=== PATIENT | female | born 1985 | race Caucasian/White ===

== ENCOUNTER 2017-08-03 06:01 | Inpatient (IN) ==
[2017-08-03] MEDS ORDERED: LIDOCAINE 1% (10mg/ml) 2mL INJ PF SDV ID PRN (06:11)
[2017-08-03] MEDS ORDERED: D5LR 1,000 ML IV PRN (06:11)
[2017-08-03] MEDS ORDERED: OXYTOCIN DRIP 30 UNIT/500 ML ML IV PRN (06:11)
[2017-08-03] MEDS ORDERED: CALCIUM CARBONATE Chewable 500mg TABLET PO PRN ×2 (06:11→14:52)
[2017-08-03] MEDS ORDERED: METHYLERGONOVINE 0.2 MG/ML INJECTION IM PRN (06:11)
[2017-08-03] MEDS ORDERED: ACETAMINOPHEN 500 MG TABLET PO PRN ×2 (06:11→14:52)
[2017-08-03] MEDS ORDERED: CARBOPROST 250 MCG/ML INJECTION IM PRN (06:11)
[2017-08-03] MEDS ORDERED: MAG-AL + SIM ORAL LIQUID 30ml PO PRN ×2 (06:11→14:52)
--- OUTSIDE RECORDS SUMMARY | 2017-08-03 06:14 | External Medical Summary | Continuity of Care Document ---
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) - (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) w/o abn findings Suprvsn of w grand - multiparity, second trimester Encounter for suprvsn of normal - , second trimester 23 weeks gestation of - Hypokalemia - 19 weeks gestation of - Encounter for suprvsn of normal - , second trimester Irregular Menses Suprvsn of w grand - multiparity, first trimester Encounter for suprvsn of normal - , first trimester 13 weeks gestation of - Suprvsn of w grand - multiparity, first trimester Encntr screen for infections w sexl - mode of transmiss Encounter for screening for oth - infec/parastc diseases Encounter for screening of - mother 10 weeks gestation of - Encounter for suprvsn of normal - , first trimester Suprvsn of w grand - multiparity, second trimester Encounter for suprvsn of normal - , second trimester 19 weeks gestation of - Pap Smear Screening, Cervix - Suprvsn of w grand - multiparity, second trimester Encounter for suprvsn of normal - , second trimester 17 weeks gestation of - Spotting complicating , - second trimester Encounter for suprvsn of normal - , second trimester 18 weeks gestation of - Spotting complicating , - second trimester Encounter for suprvsn of normal - , second trimester 18 weeks gestation of - Encounter for suprvsn of normal - , second trimester Inappropriate Change In Quantitative - Active HCG In Early Urinary Frequency - Active Procedures Procedure Date OB Visit No Charge Results Test Name Date and Time Measure Units Reference Range Abnormal Flag Comments Unknown Advance Directives Directive Yes / No Effective Date File Name Unknown Encounters Encounter Practice Location Reason(s) Diagnoses Date Provider Care Team Description For Visit Members Richard Kiran of Catherine Referring In Womens w grand 1-201 Brianne. Provider: Kevin HAYES multiparity, 7 Brianne PO Box [facility] Catherine L, 152, [place] [address] Ja for suprvsn of Harpal Jalloh, normal , 120, Center [id number], second Harpal Biswas 120, [place] [email or web address] weeks True NÚÑEZ, tel: gestation of [phone] [place], [id number] , [place]. [id number]. tel: tel: [phone] Richard Biswas [id number] [facility] Referring In Womens weeks gestation 4-201 Brianne. Provider: Kevin HAYES, of Brianne [facility] Catherine L, 152, r for suprvsn of [address], normal , Harpal Jalloh, second trimester 120, Center [id number], True, [facility] 120, [place] True NÚÑEZ, tel:[phone] [place], , [place]. [id number]. tel: tel: [phone] Richard Kiran of Catherine Referring In Womens Ultrasound w grand 4-201 Brianne. Provider: Health ABIGAIL, multiparity, 7 700 Brianne PO Box second Medical Catherine L, 1522, trimesterEncounte Center [facility], r for suprvsn of Harpal Jalloh, normal , 120, Center [id number], second [place], [facility] 120, [place] [email or web address] weeks True NÚÑEZ, tel: gestation of [phone] [place], , [place]. [id number]. tel: tel: [phone] Richard Biswas Spotting Catherine Referring In Womens complicating 9-201 Brianne. Provider: Health ABIGAIL, , second 7 700 Brianne PO Box [facility] Catherine L, 1522, r for suprjamesn of [place] [address] [place], normal , Harpal Jalloh, second 120, Center [id number], [email or web address] weeks True [facility] 120, [place] gestation of True NÚÑEZ, tel:+ [phone] [place], , [place]. [id number]. tel: tel: [phone] Richard Cummins Aman Referring In Womens complicating 8-201 Kuldeep. 700 Provider: Health ABIGAIL, , second 7 Medical Brianne PO Box [facility] [place] Catherine L, 1522, r for suprvsn of Harpal Jalloh, normal , 120, Medical [place], second [place], [place] [id number], [id number] weeks [place], [facility] 120, [place] gestation of [id number] True, tel: , [place]. [place] tel:[phone]. [id number] tel:[phone] Richard Kiran of Raji-1 Catherine Referring In Womens w grand 0-201 Brianne. Provider: Health ABIGAIL, multiparity, 7 700 Brianne PO Box second Medical Catherine L, 1522, trimesterEncounte Center 700 [place], bubba for suprvsn of Harpal Jalloh, normal , 120, Center [id number], second Biswas [facility] 120, [place] weeks True NÚÑEZ, tel:+[phone] gestation of [phone] [place], , [place]. [id number]. tel: tel:[phone] Associates True Encounter for Feb-0 Catherine Referring In Womens suprvsn of normal 5-201 Brianne. Provider: Kevin HAYES, , second 7 700 Brianne PO Box trimester Medical Catherine L, 1522, Center 700 [place], Harpal Jalloh, 120, Center [id number], Biswas [facility] 120, [place] True NÚÑEZ, tel:[phone] [place], , [place]. [id number]. tel: tel:[phone] Associates True Suprvsn of Catherine Referring In Womens w grand 2-201 Brianne. Provider: Kevin HAYES, multiparity, 7 700 Brianne PO Box first Medical Catherine L, 1522, trimesterEncounte Center 700 [place], r for suprvsn of Harpal Jalloh, normal , 120, Center [id number], first [email or web address] [place], Harpal 120, [place] weeks gestation True NÚÑEZ, tel:+ of [phone] [place], , [place]. [id number]. tel: tel:[phone] Associates True Suprvsn of December- Catherine Referring In Womens w grand 3-201 Brianne. Provider: Kevin HAYES, multiparity, 7 700 Brianne PO Box first Medical Catherine L, 1522, trimesterEncntr Center 700 [place], screen for Harpal Jalloh, infections w sexl 120, Center [id number], mode of [place], [facility] 120, [place] transmissEncounte True NÚÑEZ, tel:+ r for screening [phone] [place], for oth , [place]. [id number]. infec/parastc tel: tel:+[phone] diseasesEncounter [phone] for screening of [id number] weeks gestation of pregnancyEncounte r for suprvsn of normal , first trimester Associates True Irregular Menses Apr-2 Levin Referring In Womens [facility]. Provider: Kevin HAYES, 7 700 Brianne PO Box Medical Catherine L, 1522, Center [address] Dr Ja, [facility] [place], 120, Center [id number], True, [facility] 120, [place] True NÚÑEZ, tel:[phone] [place], , [place]. [id number]. 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 Provider: Kevin HAYES, (routine) w/o abn 6 700 Brianne PO Box findingsPap Smear Medical Catherine L, 1522, Screening, Cervix Center [address] Dr Ja, [facility], 120, Center [id number], True, [facility] 120, [place] True NÚÑEZ, tel:[phone] [place], , [place]. [id number]. 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 Provider: Kevin HAYES, (routine) w/o abn 5 700 Brianne PO Box findings Medical Catherine L, 1522, Center [address] Dr Ja, [facility] [place], 120, Center [id number], True, [facility] 120, [place] True NÚÑEZ, tel:[phone] [place], , [place]. [id number]. tel: tel:[phone] Richard Biswas May- Ollie Referring In Womens - [facility]. Provider: Kevin HAYES, 5 700 Brianne PO Box Medical Catherine L, 1522, Center [address] Dr Ja, [facility] [place], 120, Center [id number], [facility], [place], [place], tel: [phone] [place], , [place]. [id number]. tel: tel: [phone] Richard Biswas Vincent Referring In Womens 8-201 Varsha. Provider: [facility], 1 700 [facility] 1522, [facility], [place]. Dr Ja, [facility], 120, [id number], [place], [facility], tel: [phone] , [place]. tel: [phone] Family History Family Member Diagnosis Age At Onset Brother Renal disease Sister Hypertension Father Hypertension Paternal grandfather Diabetes mellitus Maternal Grandmother Unknown Cancer Brother Stroke Brother Hypertension Mother Hypertension Immunizations Vaccine Date Status Comments Unknown Payers Payer name Insurance type Covered alliance party ID Authorization(s) [facility] [id number] Social History Type Description Quantity Date Captured Alcohol Use Details No Caffeine Use Details Unknown Tobacco Use Status Unknown Smoking Status Never smoker Vital Signs Date / Height Weight BMI Pulse Blood Temperature Respiratory Body Head BMI Time: Rate Pressure Rate Surface Circumference percentile Area 7 5 8:33 kg/m AM eter (2) 154.50 28.7 95/55 2017 lbs 2 mm[Hg] 8:48 kg/m AM eter (2) Chief Complaint And Reason For Visit Unknown Chief Complaint And Reason For Visit Reason For Referral Reason For Referral Unknown Plan Of Care Date Type Action Status Goal Lifestyle education regarding completed diet Appointment Florencia Anne BOOKED Future Order: Radiology Order Complete OB Ultrasound > 14 Ordered Weeks ([id number]) Future Order: Lab Order Pap Smear With HPV Reflex If Ordered ASCUS ([id number]) Future Order: Lab Order Pap Smear With HPV Reflex If Ordered ASCUS (WPMPap1) Date Type Problem Goal Intervention Status Start Date Unknown. History Of Present Illness Encounter Date Complaint History Of Present Illness This patient has no known history of present illness Functional Status Encounter Date Functional Assessment Cognitive Assessment Unknown Medications Administered Medication Instructions Dosage Effective Dates (start - stop) Status Comments Drug Treatment Unknown Instructions Date Instruction Additional Information [facility] docs new ob handbook Giving encouragement to exercise Related to Body mass index 27.0- 27.9 Lifestyle education regarding diet Related to Body mass index 27.0-27.9
--- OUTSIDE RECORDS SUMMARY | 2017-08-03 06:14 | External Medical Summary | Continuity of Care Document ---
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) - (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) w/o abn findings Hypokalemia - Encounter for suprvsn of normal - , second trimester 19 weeks gestation of - Irregular Menses Suprvsn of w grand - multiparity, first trimester Encounter for suprvsn of normal - , first trimester 13 weeks gestation of - Suprvsn of w grand - multiparity, first trimester Encntr screen for infections w sexl - mode of transmiss Encounter for screening for oth - infec/parastc diseases Encounter for suprvsn of normal - , first trimester Encounter for screening of - mother 10 weeks gestation of - Suprvsn of w grand - multiparity, second trimester Encounter for suprvsn of normal - , second trimester 19 weeks gestation of - Suprvsn of w [...] second trimester 18 weeks gestation of - Pap Smear Screening, Cervix - Encounter for suprvsn of normal - , second trimester Inappropriate Change In Quantitative - Active HCG In Early Urinary Frequency - Active Procedures Procedure Date OB Visit No Charge Assay, blood potassium Venpnctr fngr/heel/ear stick routne Results Test Name Date and Time Measure Units Reference Range Abnormal Flag Comments Panel Description: Potassium [Moles/volume] in Serum or Plasma POTASSIUM 12:08:00 3.6 mmol/L 3.5-5.3 N Test performed at [facility] [id number] [place] [address]Zlaqzaxt: SHEYLA OQUENDO DO,MPH Advance Directives Directive Yes / No Effective Date File Name Unknown Encounters Encounter Practice Location Reason(s) Diagnoses Date Provider Care Team Description For Visit Members Richard Biswas HypokalemiaEncoun Catherine Referring In Women ter for suprvsn 4-201 Brianne. Provider: Health PA, of normal 7 700 Brianne PO Box , second Medical Catherine L, 1522, [email or web address] weeks Center 700 [place], gestation of Harpal Jalloh, 120, Center [id number], True [facility] 120, [place] True NÚÑEZ, tel:[phone] [place], [address] , [place]. [id number]. tel: tel:[phone] Richard Biswas Suprvsn of Raji-2 Catherine Referring In Womens Ultrasound w grand 4-201 Brianne. Provider: Health ABIGAIL, multiparity, 7 700 Brianne PO Box [facility] Medical Catherine L, 1522, [facility] [employer], r for suprvsn of Harpal Jalloh, normal , 120, Center [id number], second True, Harpal 120, [place] [email or web address] weeks True NÚÑEZ, tel:+ gestation of [phone] [place], , [place]. [id number]. tel: tel:[phone] Associates True Spotting Feb-1 Catherine Referring In Womens complicating 9-201 Brianne. Provider: Health PA, , second 7 700 Brianne PO Box [facility] Medical Catherine L, 1522, r for smith of Center [facility] [employer], normal , Harpal Jalloh, second 120, Center [id number], [email or web address] weeks Biswas, [facility] 120, [place] gestation of True NÚÑEZ, tel: [phone] [place], , [place]. [id number]. tel: tel:[phone] Richard Biswas Spotting Feb-1 Aman Referring In Womens complicating 8-201 Kuldeep. 700 Provider: Kevin HAYES, , second 7 Medical Brianne PO Box [facility] L, 1522, r for suprjamesn of Harpal Jalloh, normal , 120, Medical [place], second True, Center [id number], [id number] weeks [place], Harpal 120, [place] gestation of [id number] True, tel: , [place]. [place], tel:[phone]. [id number] tel:[phone] Richard Biswas Suprjamesn of Feb-1 Catherine Referring In Womens w grand 0-201 Brianne. Provider: Health ABIGAIL, multiparity, 7 700 Brianne PO Box second Medical Catherine L, 1522, trimesterEncst. [facility] Center [address] [place], [place] [address]ta, r for suprvsn of Harpal Jalloh, normal , 120, Center [id number], second [place], Harpal 120, [place] [id number] weeks True NÚÑEZ tel:+ gestation of [phone] [place], , [place]. [id number]. tel: tel:[phone] Associates True Encounter for Catherine Referring In Womens suprvsn of normal 5-201 Brianne. Provider: Health PA, , second 7 700 Brianne PO Box trimester Medical Catherine L, 1522, Center [facility] [employer], Harpal Jalloh [place], 120, Center [id number], [place], [facility] 120, [place] True NÚÑEZ, tel:[phone] [place], , [place]. [id number]. tel: tel:[phone] Associates True Suprvsn of Catherine Referring In Womens w grand 2-201 Brianne. Provider: Kevin HAYES, multiparity, 7 700 Brianne PO Box first Medical Catherine L, 1522, trimesterEncounte Center [facility] [employer], r for suprvsn of Harpal Jalloh, normal , 120, Center [id number], first [id number] [place], [facility] 120, [place] weeks gestation True NÚÑEZ, tel:+ of [phone] [place], , [place]. [id number]. tel: tel:[phone] Richard Biswas Suprvsn of Catherine Referring In Womens w grand 3-201 Brianne. Provider: Kevin HAYES, multiparity, 7 700 Brianne PO Box first Medical Catherine L, 1522, trimesterEncntr Center [address] [place] [address], screen for Harpal Jalloh, infections w sexl 120, Center [id number], mode of [place], [facility] 120, [place] transmissEncounte True NÚÑEZ, tel:[phone] r for screening [phone] [place], for oth , [place]. [id number]. infec/parastc tel: tel:+[phone] diseasesEncounter [phone] for suprvsn of normal , first trimesterEncounte r for screening of [email or web address] weeks gestation of Associates True Irregular Menses Apr-2 Levin Referring In Womens Perla. Provider: Kevin HAYES, 7 700 Brianne PO Box Medical Catherine L, 1522, Center [address] Dr Ja, [facility] [place], 120, Center [id number], True, [facility] 120, [place] True NÚÑEZ, tel:[phone] [place], , [place]. [id number]. 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 Provider: Kevin HAYES, (routine) w/o abn 6 700 Brianne PO Box findingsPap Smear Medical Catherine L, 1522, Screening, Cervix Center [address] Dr Ja, [facility] [place], 120, Center [id number], True, [facility] 120, [place] True NÚÑEZ, tel:[phone] [place], , [place]. [id number]. 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 Provider: Kevin HAYES, (routine) w/o abn 5 700 Brianne PO Box findings Medical Catherine L, 1522, Center [address], [facility] [place], 120, Center [id number], True [facility] 120, [place] True NÚÑEZ, tel:[phone] [place], , [place]. [id number]. tel: tel:[phone] Richard Biswas December- Ollie Referring In Womens Perla. Provider: Kevin HAYES, 5 700 Brianne PO Box Medical Catherine L, 1522, Center [address], [facility] [place], 120, Center [id number], True, [facility] 120, [place] True NÚÑEZ, tel:[phone] [place], , [place]. [id number]. tel: tel:[phone] Richard Biswas Nov-2 Vincent Referring In Womens Varsha. Provider: Health ABIGAIL, 1 700 Eleni PO Box Medical [place] 1522, [place], [place]. Dr Ja, [facility], 120, [id number], [place], [place], tel:[phone] , [place]. tel: [phone] Family History Family Member Diagnosis Age At Onset Brother Renal disease Sister Hypertension Father Hypertension Paternal grandfather Diabetes mellitus Maternal Grandmother Unknown Cancer Brother Stroke Brother Hypertension Mother Hypertension Immunizations Vaccine Date Status Comments Unknown Payers Payer name Insurance type Covered constitution party ID Authorization(s) [facility] [id number] Social History Type Description Quantity Date Captured Alcohol Use Details No Caffeine Use Details Unknown Tobacco Use Status Unknown Smoking Status Never smoker Vital Signs Date / Height Weight BMI Pulse Blood Temperature Respiratory Body Head BMI Time: Rate Pressure Rate Surface Circumference percentile Area Unknown Chief Complaint And Reason For Visit Unknown Chief Complaint And Reason For Visit Reason For Referral Reason For Referral Unknown Plan Of Care Date Type Action Status Goal Lifestyle education regarding completed diet Appointment Florencia Anne BOOKED Future Order: Radiology Order Complete OB Ultrasound > 14 Ordered Weeks ([id number]) Future Order: Lab Order Pap Smear With [...]
--- OUTSIDE RECORDS SUMMARY | 2017-08-03 06:14 | External Medical Summary | Continuity of Care Document ---
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) - (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) w/o abn findings 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) - (routine) w/o abn findings Encounter for suprvsn of normal - , second trimester Hypokalemia - 19 weeks gestation of - Encounter for suprvsn of normal - , second trimester Irregular Menses Suprvsn of w grand - multiparity, first trimester Encounter for suprvsn of normal - , first trimester 13 weeks gestation of - Suprvsn of w grand - multiparity, first trimester Encounter for suprvsn of normal - , first trimester Encntr screen for infections w [...] second trimester 18 weeks gestation of - Inappropriate Change In Quantitative - Active HCG In Early Urinary Frequency - Active Procedures Procedure Date No Charge Office Visit Results Test Name Date and Time Measure Units Reference Range Abnormal Flag Comments Unknown Advance Directives Directive Yes / No Effective Date File Name Unknown Encounters Encounter Practice Location Reason(s) Diagnoses Date Provider Care Team Description For Visit Members Richard Biswas [id number] Catherine Referring In Womens weeks gestation 4-201 Brianne. Provider: Kevin HAYES, of 7 700 Brianne [address] [employer], 1522, r for suprvsn of Center [facility] [place], normal , Harpal Jalloh, second trimester 120, Center [id number], True [facility] 120, [place] True NÚÑEZ, tel:[phone] [place] [address] , [place]. [id number]. tel: tel:+ [phone] Associates True Suprvsn of [facility] Referring In Womens Ultrasound w grand 4-201 Brianne. Provider: Kevin HAYES multiparity, 7 700 Brianne PO Box [facility] Medical Catherine L, 1522, trimesterEncounte Center 700 [place], for suprvsn of Harpal Jalloh, normal , 120, Center [id number], [facility] Harpal Biswas 120, [place] [id number] weeks True NÚÑEZ, tel:[phone] gestation of [id number] [place] [address] , [place]. [id number]. tel: tel:[phone] Richard Biswas Spotting Feb-1 Catherine Referring In Womens complicating 9-201 Brianne. Provider: Health ABIGAIL, , second 7 700 Brianne PO Box trimesterEncounte Medical Catherine L, 1522, r for suprvsn of Center [facility] [place], normal , Dr [facility] [place] NÚÑEZ, second 120, Center [id number], [id number] weeks [facility], [place] gestation of True NÚÑEZ, tel:+ [phone] [place], , [place]. [id number]. tel: tel:[phone] Richard Biswas Spotting Feb-1 Aman Referring In Womens complicating 8-201 Kuldeep. 700 Provider: Kevin HAYES, , second 7 Medical Brianne PO Box trimesterEncounte [facility] [place] L, 1522, r for suprvsn of Harpal Jalloh, normal , 120, Medical [place], second [place], [place] [id number], [id number] weeks [facility] 120, [place] gestation of [id number] Biswas, tel: , [place]. [place] tel:[phone] tel:[phone] Richard Biswas Suprvsn of Feb-1 Catherine Referring In Womens w grand 0-201 Brianne. Provider: Kevin HAYES, multiparity, 7 700 Brianne PO Box second Medical Catherine L, 1522, trimesterEncounte Center [address] [place] [address], r for suprvsn of Dr [facility] [place] NÚÑEZ, normal , 120, Center [id number], second [facility] 120, [place] [email or web address] weeks True NÚÑEZ, tel:+ gestation of [id number] [place] , [place]. [id number]. tel: tel:[phone] Richard Biswas Encounter for Raji-0 Catherine Referring In Womens suprvsn of normal 5-201 Brianne. Provider: Kevin HAYES, , second 7 700 Brianne PO Box trimester Medical Catherine L, 1522, Center [address] [facility], 120, Center [id number], [facility] 120, [place] True NÚÑEZ, tel:[phone] [place], , [place]. [id number]. tel: tel:[phone] Associates True [place] of Catherine Referring In Womens w grand 2-201 Brianne. Provider: Kevin HAYES, multiparity, 7 700 Brianne PO Box first Medical Catherine L, 1522, trimesterEncounte Center [facility], r for suprvsn of Harpal Jalloh, normal , 120, Center [id number], first [email or web address] [facility] 120, [place] weeks gestation True NÚÑEZ, tel:+[phone] [place], , [place]. [id number]. tel: tel:[phone] Associates True Kiran of Catherine Referring In Womens w grand 3-201 Brianne. Provider: Kevin HAYES, multiparity, 7 700 Brianne PO Box first Medical Catherine L, 1522, trimesterEncounte Center [facility] [place], bubba for suprvsn of Harpal Jalloh, normal , 120, Center [id number], first [facility] 120, [place] trimesterEncntr True NÚÑEZ, tel:[phone] screen for [phone] [place], infections w sexl , [place]. [id number]. mode of tel: tel:+[phone] transmissEncounte [phone] r for screening for oth infec/parastc diseasesEncounter for screening of [id number] weeks gestation of Associates True Irregular Menses Nov- Levin Referring In Womens 5-201 Perla. Provider: Kevin HAYES, 7 700 Brianne PO Box Medical Catherine L, 1522, Center 700 Dr Ja [facility] [place], 120, Center [id number], True [facility] 120, [place] True NÚÑEZ, tel:[phone] [place], , [place]. [id number]. tel: tel:+ [phone] Richard Biswas Pap Smear Alvaro-0 Ollie Referring In Womens Screening, Perla. 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 [id number]. 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 Provider: Kevin HAYES, (routine) w/o abn 5 700 Brianne PO Box findings Medical Catherine L, 1522, Center 700 Dr Ja, [facility], 120, Center [id number], True, [facility] 120, True NÚÑEZ, tel: [phone] [place], , [place]. [id number]. tel: tel: [phone] Richard Biswas December- Ollie Referring In Womens Perla. Provider: Kevin HAYES, 5 700 Brianne PO Box Medical Catherine , 1522, Center 700 Dr Ja, [facility] [place], 120, Center [id number], True, [facility] 120, [place] True NÚÑEZ, tel: [phone] [place], , [place]. [id number]. tel: tel:[phone] Richard Biswas Jun- Vincent Referring In Womens Varsha. Provider: Kevin HAYES, 1 700 Eleni PO Box Medical [facility] 1522, Center B, DESud[address], [facility] [place], 120, [id number] [place], [place], tel:[phone] , [place]. tel: [phone] Family History Family Member Diagnosis Age At Onset Brother Renal disease Sister Hypertension Father Hypertension Paternal grandfather Diabetes mellitus Maternal Grandmother Unknown Cancer Brother Stroke Brother Hypertension Mother Hypertension Immunizations Vaccine Date Status Comments Unknown Payers Payer name Insurance type Covered democrat ID Authorization(s) A[place] BL [id number] Social History Type Description Quantity Date Captured Alcohol Use Details No Caffeine Use Details Unknown Tobacco Use Status Unknown Smoking Status Never smoker Vital Signs Date / Height Weight BMI Pulse Blood Temperature Respiratory Body Head BMI Time: Rate Pressure Rate Surface Circumference percentile Area 27.1 115/ 2 mm[Hg] 2:38 kg/m PM eter (2) Chief Complaint And Reason For Visit Unknown Chief Complaint And Reason For Visit Reason For Referral Reason For Referral Unknown Plan Of Care Date Type Action Status Goal Lifestyle education regarding completed diet Appointment Florencia Anne BOOKED Future Order: Radiology Order Complete OB Ultrasound > 14 Ordered Weeks ([id number]) Future Order: Lab Order Pap Smear With [...]
--- OUTSIDE RECORDS SUMMARY | 2017-08-03 06:14 | External Medical Summary | Continuity of Care Document ---
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) - (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) w/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) - (routine) w/o abn findings Spotting complicating , - second trimester Encounter for suprvsn of normal - , second trimester 18 weeks gestation of - Hypokalemia - Encounter for suprvsn of normal [...] Procedures Procedure Date 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 Provider: Kevin HAYES, of normal 7 700 Brianne PO Box , second Medical Catherine L, 1522, [id number] weeks Center 700 [place], gestation of Harpal Jalloh, 120, Center [id number], True [facility] 120, [place] True ÚNÑEZ, tel:[phone] [place] [address] , [place]. [id number]. tel: tel: [phone] Associates True Suprvsn of Catherine Referring In Womens Ultrasound w grand 4-201 Brianne. Provider: Kevin HAYES, multiparity, 7 700 Brianne PO Box second Medical Catherine L, 1522, trimesterEncounte Center 700 [place], for suprvsn of Harpal Jalloh, normal , 120, Center [id number], [facility] Harpal Biswas 120, [place] [id number] weeks True NÚÑEZ, tel:[phone] gestation of [id number] [place] , [place]. [id number]. tel: tel:[phone] Richard Biswas Spotting Feb-1 Catherine Referring In Womens complicating 9-201 Brianne. Provider: Kevin HAYES, , second 7 700 Brianne PO Box trimesterEncounte Medical Catherine L, 1522, r for suprvsn of [place] [address] Ja, normal , Dr [facility] [place] NÚÑEZ, second 120, Center [id number], weeks True [facility] 120, [place] gestation of True NÚÑEZ, tel:+ [phone] [place], , [place]. [id number]. tel: tel:[phone] Richard Biswas Spotting Feb-1 Aman Referring In Womens complicating 8-201 Kuldeep. 700 Provider: Kevin HAYES, , second 7 Medical Brianne PO Box trimesterEncounte [facility] L, 1522, r for suprvsn of Dr [place] [address] Ja, normal , 120, Medical [place], second [place], [place] [id number], [email or web address] weeks ME [facility] 120, [place] gestation of [id number] Biswas, tel: , [place]. [place] tel:[phone] tel:[phone] Richard Biswas Suprvsn of Feb-1 Catherine Referring In Womens w grand 0-201 Brianne. Provider: Kevin HAYES, multiparity, 7 700 Brianne PO Box second Medical Catherine L, 1522, trimesterEncounte Center [address] [place] [address], r for suprvsn of Dr [facility] [place] NÚÑEZ, normal , 120, Center [id number], second [facility] 120, [place] weeks True NÚÑEZ, tel:+ gestation of [phone] [place], , [place]. [id number]. tel: tel:[phone] Associates True Encounter for Raji-0 Catherine Referring In Womens suprvsn of normal 5-201 Brianne. Provider: Kevin HAYES, , second 7 700 Brianne PO Box trimester Medical Catherine L, 1522, Center 700 Dr aJ [facility] [place] NÚÑEZ, 120, Center [id number], [facility] 120, [place] True NÚÑEZ, tel:[phone] [place], , [place]. [id number]. tel: tel:[phone] Associates True Suprvsn of Catherine Referring In Womens w grand 2-201 Brianne. Provider: Kevin HAYES, multiparity, 7 700 Brianne PO Box first Medical Catherine L, 1522, trimesterEncounte Center 700 [place], r for suprvsn of Harpal Jalloh, normal , 120, Center [id number], first [id number] [facility] 120, [place] weeks gestation True NÚÑEZ, tel:+ of [phone] [place], , [place]. [id number]. tel: tel:[phone] Associates True Suprvsn of Catherine Referring In Womens w grand 3-201 Brianne. Provider: Kevin HAYES, multiparity, 7 700 Brianne PO Box first Medical Catherine L, 1522, trimesterEncntr Center [address] [place] [address], screen for Dr [facility] [place] NÚÑEZ, infections w sexl 120, Center [id number], mode [facility] 120, [place] transmissEncounte True NÚÑEZ, tel:[phone] r for screening [phone] [place], for oth , [place]. [id number]. infec/parastc tel: tel:+[phone] diseasesEncounter [phone] for suprvsn of normal , first trimesterEncounte r for screening of weeks gestation of Associates True Irregular Menses Nov- Levin Referring In Womens 5-201 Perla. Provider: Kevin HAYES, 7 700 Brianne PO Box Medical Catherine L, 1522, Center 700 Ja, Harpal Jalloh, 120, Center [id number], [facility] 120, [place] True NÚÑEZ, tel:[phone] [place], , [place]. [id number]. 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 Provider: Health ABIGAIL, (routine) w/o abn 6 700 Brianne PO Box findingsPap Smear Medical [facility], 1522, Screening, Cervix Center [address] Dr aJ, [facility] [place], 120, Center [id number], True, [facility] 120, True NÚÑEZ, tel:+ [phone] [facility] , [place]. [id number]. 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 Provider: Kevin HAYES, (routine) w/o abn 5 700 Brianne PO Box findings Medical [facility], 1522, Center [address] Dr Ja, [facility], 120, Center [id number], True, [facility] 120, True NÚÑEZ, tel:[phone] [place], , [place]. [id number]. tel: tel: [phone] Richard Biswas December- Ollie Referring In Womens Perla. Provider: Kevin HAYES, 5 700 Brianne PO Box [facility], 1522, Center [address] Dr Ja, [facility] [place], 120, Center [id number], True, [facility] 120, [place] True NÚÑEZ, tel:[phone] [place], , [place]. [id number]. tel: tel:[phone] Richard Biswas Nov-2 Vincent Referring In Womens 8 Varsha. Provider: Kevin HAYES, 1 700 Eleni PO Box [facility] 1522, Center B, [place]. Dr Ja, [facility] [place], 120, [id number] Long, [place], tel:[phone] , [place]. tel: [phone] Family History Family Member Diagnosis Age At Onset Brother Renal disease Sister Hypertension Father Hypertension Paternal grandfather Diabetes mellitus Maternal Grandmother Unknown Cancer Brother Stroke Brother Hypertension Mother Hypertension Immunizations Vaccine Date Status Comments Unknown Payers Payer name Insurance type Covered libertarian ID Authorization(s) RAJ NÚÑEZ BL [id number] Social History Type Description Quantity Date Captured Alcohol Use Details No Caffeine Use Details Unknown Tobacco Use Status Unknown Smoking Status Never smoker Vital Signs Date / Height Weight BMI Pulse Blood Temperature Respiratory Body Head BMI Time: Rate Pressure Rate Surface Circumference percentile Area 147.50 27.4 111/ lbs 2 mm[Hg] 10:38 kg/m AM eter (2) Chief Complaint And Reason For Visit Unknown Chief Complaint And Reason For Visit Reason For Referral Reason For Referral Unknown Plan Of Care Date Type Action Status Goal Lifestyle education regarding completed diet Appointment Florencia Anne BOOKED Future Order: Radiology Order Complete OB Ultrasound > 14 Ordered Weeks ([id number]) Future Order: Lab Order Pap Smear With [...]
--- OUTSIDE RECORDS SUMMARY | 2017-08-03 06:14 | External Medical Summary | Continuity of Care Document ---
:1985 Author Organization [facility] Address [address] [place], [place] [address] Phone Support Name Relationship Address Phone Sushil Anne spouse [address] [phone] [place] [address] Allergies, Adverse Reactions, Alerts Substance Reaction Severity Status No Known Drug Allergies Unknown Active Medications Medication Instructions Dosage Effective Dates Status Comments (start - stop) ONE DAILY take 1 tablet by oral - Active (unknown strength) route every day Zantac 75 mg tablet take 1 tablet by oral 75 MG - Active route 2 times every day with glass of water Problems Condition Effective Dates (start - stop) Clinical Status 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) - (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) w/o 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 findings 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) - (routine) w/o abn findings Suprvsn of w grand - multiparity, second trimester Encounter for suprvsn of normal - , second trimester 27 weeks gestation of - Hypokalemia - Encounter [...] second trimester 17 weeks gestation of - Suprvsn of w grand - multiparity, second trimester Encounter for suprvsn of normal - , second trimester 23 weeks gestation of - Suprvsn of w grand - multiparity, third trimester Encounter for suprvsn of normal - , third trimester 36 weeks gestation of - Suprvsn of w grand - multiparity, third trimester 30 weeks gestation of - Suprvsn of w grand - multiparity, third trimester Encounter for suprvsn of normal - , third trimester 32 weeks gestation of - Suprvsn of w grand - multiparity, third trimester 34 weeks gestation of - Spotting complicating , [...] Urinary Frequency - Active Procedures Procedure Date Unknown Results Test Name Date and Time Measure Units Reference Range Abnormal Flag Comments Unknown Advance Directives Directive Yes / No Effective Date File Name Unknown Encounters Encounter Practice Location Reason(s) Diagnoses Date Provider Care Team Description For Visit Members Richard Kiran of Jun-2 Catherine Referring In Womens w grand 2-201 Brianne. Provider: Kevin HAYES, multiparity, 7 700 [address] third Medical Catherine L, 1522, trimesterEncounte Center [address] [place], r for suprvsn of Harpal Jalloh, normal , 120, Center [id number], third [id number] [facility], [place] weeks gestation True NÚÑEZ, tel: of [phone] [place], , [place]. [id number]. tel: tel: [phone] Richard [place] Jun- Catherine In Womens 4-201 Brianne. Kevin HAYES, 7 700 PO Box Medical 1522, Center [place], Har[place] Jalloh [place], 120, [id number], [place], tel:[phone] , [place]. tel: [phone] Richard Kiran of Jun-0 Catherine Referring In Womens w grand 8-201 Brianne. Provider: Kevin HAYES, multiparity, 7 700 Brianne PO Box third Medical Catherine L, 1522, weeks gestation Center [facility] [place], of Harpal Jalloh, 120, Center [id number], True [facility] 120, [place] True NÚÑEZ, tel: [phone] [place], , [place]. [id number]. tel: tel: [phone] Richard Kiran of May- Catherine Referring In Womens w grand 5-201 Brianne. Provider: Kevin HAYES, multiparity, 7 700 Brianne PO Box third Medical Catherine L, 1522, [facility]Enc[facility] hospitale [place] [address] bubba [address] for suprvsn of Harpal Jalloh, normal , 120, Center [id number], third [id number] True [facility] 120, [place] weeks gestation True NÚÑEZ, tel:+ of [phone] [place], , [place]. [id number]. tel: tel: [phone] Richard Banerjeen of Catherine Referring In Womens w grand 1-201 Brianne. Provider: Health PA, multiparity, 7 700 Brianne PO Box third [id number] Medical Catherine L, 1522, weeks gestation Center [address] [place] [address], of Harpal Jalloh, 120, Center [id number], True [place] 120, [place] True NÚÑEZ, tel:[phone] [place], , [place]. [id number]. tel: tel:[phone] Associates True Suprvsn of Catherine Referring In Womens w grand 0-201 Brianne. Provider: Health ABIGAIL, multiparity, 7 700 Brianne PO Box second Medical Catherine L, 1522, trimesterEncounte Center [address] [place] [address], r for suprvsn of Harpal Jalloh, normal , 120, Center [id number], [facility] Harpal [place] 120, [place] [id number] weeks True NÚÑEZ, tel:+[phone] gestation of [phone] [place], , [place]. [id number]. tel: tel:[phone] Richard [place] Suprvsn of Catherine Referring In Womens w grand 1-201 Brianne. Provider: Kevin HAYES, multiparity, 7 700 Brianne PO Box second Medical Catherine L, 1522, trimesterEncounte Center [address] [place] [address], r for suprvsn of Harpal Jalloh, normal , 120, Center [id number], [facility] True [place] 120, [place] [id number] weeks True NÚÑEZ, tel:+[phone] gestation of [id number] [place], , [place]. [id number]. tel: tel:[phone] Richard [place] HypokalemiaEncoun Catherine Referring In Womens ter for suprvsn 4-201 Brianne. Provider: Kevin HAYES, of normal 7 700 Brianne PO Box , second Medical Catherine L, 1522, [email or web address] [facility] of Harpal Jalloh, 120, Center [id number], [place], [place] 120, [place] True NÚÑEZ, tel: [phone] [place], , [place]. [id number]. tel: tel:[phone] Associates True Kiran of Feb-2 Catherine Referring In Womens Ultrasound w grand 4-201 Brianne. Provider: Kevin HAYES, multiparity, 7 700 Brianne PO Box second Medical Catherine L, 1522, trimesterEncounte Center [address] [place] [address], r for suprvsn of , [facility] [place], normal , 120, Center [id number], second [place], [place] 120, [place] [id number] weeks True NÚÑEZ, tel: gestation of [id number] [place], , [place]. [id number]. tel: tel:[phone] Associates True Spotting Feb-1 Catherine Referring In Womens complicating 9-201 Brianne. Provider: Kevin HAYES, , second 7 700 Brianne PO Box [facility] Medical Catherine L, 1522, r for smith of [place] [address] [place], normal , Dr [facility] [place], second 120, Center [id number], [id number] weeks [place], [facility] 120, [place] gestation of [place] True, tel: [phone] [place], , [place]. [id number]. tel: tel:[phone] Richard [place] Spotting Feb-1 Aman Referring In Womens complicating 8-201 Kuldeep. 700 Provider: Kevin HAYES, , second 7 Medical Brianne PO Box trimesterEncvencor hospitale Center [facility] L, 1522, r for suprjamesn of [place] [address] [place], normal , 120, Medical [place], second [place], [place] [id number], weeks [place], [place] 120, [place] gestation of [id number] True, tel: , [place]. [place], tel:[phone] tel:[phone] Richard Kiran of Feb-1 Catherine Referring In Womens w grand 0-201 Brianne. Provider: Kevin HAYES, multiparity, 7 700 Brianne PO Box second Medical Catherine L, 1522, trimesterEncounte Center 700 [place], r for suprvsn of Harpal Jalloh, normal , 120, Center [id number], second [place], [facility] 120, [place] [id number] weeks True NÚÑEZ, tel:+[phone] gestation of [id number] [place], , [place]. [id number]. tel: tel:[phone] Richard [place] Encounter for Catherine Referring In Womens suprvsn of normal 5-201 Brianne. Provider: Health PA, , second 7 700 Brianne PO Box trimester Medical Catherine L, 1522, Center [facility] [place], Harpal Jalloh, 120, Center [id number], True [facility] 120, [place] True NÚÑEZ, tel:[phone] [place], , [place]. [id number]. tel: tel:[phone] Richard [place] Suprvsn of Catherine Referring In Womens w grand 2-201 Brianne. Provider: Health PA, multiparity, 7 700 Brianne PO Box first Medical Catherine L, 1522, trimesterEncounte Center 700 [place], r for suprvsn of Harpal Jalloh, normal , 120, Center [id number], first [id number] [place] [facility] 120, [place] weeks gestation True NÚÑEZ, tel:+ of [phone] [place], , [place]. [id number]. tel: tel:[phone] Richard [place] Suprvsn of Catherine Referring In Womens w grand 3-201 Brianne. Provider: Health PA, multiparity, 7 700 Brianne PO Box first Medical Catherine L, 1522, trimesterEncntr Center 700 [place], screen for Harpal Jalloh, infections w sexl 120, Center [id number], mode [facility] 120, [place] transmissEncounte True NÚÑEZ, tel:[phone] r for screening [id number] [place], for oth , [place]. [id number]. infec/parastc tel:+[phone] tel:+[phone] diseasesEncounter [phone] for suprvsn of normal , first trimesterEncounte r for screening of [id number] weeks gestation of Associates True Irregular Menses Nov- Ollie Referring In Womens [facility]. Provider: Kevin HAYES, 7 700 Brianne PO Box Medical Catherine L, 1522, Center [address] Dr Ja, [facility], 120, Center [id number], True, [facility] 120, [place] True NÚÑEZ, tel: [phone] [place], , [place]. [id number]. 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 Provider: Kevin HAYES, (routine) w/o abn 6 700 Brianne PO Box findingsPap Smear Medical Catherine L, 1522, Screening, Cervix Center [facility] Dr Ja, [facility], 120, Center [id number], True [facility] 120, [place] True NÚÑEZ, tel:[phone] [place], , [place]. [id number]. 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 Provider: Kevin HAYES, (routine) w/o abn 5 700 Brianne PO Box findings Medical Catherine L, 1522, Center [address], [facility] [place], 120, Center [id number], True [facility] 120, [place] True NÚÑEZ, tel: [phone] [place], , [place]. [id number]. tel: tel:[phone] Associates True December- Ollie Referring In Womens [facility]. Provider: Kevin HAYES, 5 700 Brianne PO Box Medical Catherine L, 1522, Center [address], [facility], 120, Center [id number], True, [facility] 120, [place] True NÚÑEZ, tel:[phone] [place], , . [id number]. tel: tel: [phone] Associates True Vincent Referring In Womens 8-201 Varsha. Provider: Kevin HAYES, 1 700 [facility] 1522, Center B, [place]. Dr Ja, [facility] [place], 120, [id number], [facility], tel:[phone] , . tel: [phone] Family History Family Member Diagnosis Age At Onset Brother Renal disease Sister Hypertension Father Hypertension Paternal grandfather Diabetes mellitus Maternal Grandmother Unknown Cancer Brother Stroke Brother Hypertension Mother Hypertension Immunizations Vaccine Date Status Comments Tdap completed Source: New Immunization Record Payers Payer name Insurance type Covered alliance party ID Authorization(s) [facility] [id number] [facility] [id number] Social History Type Description Quantity Date Captured Unknown Vital Signs Date / Height Weight BMI Pulse Blood Temperature Respiratory Body Head BMI Time: Rate Pressure Rate Surface Circumference percentile Area Unknown Chief Complaint And Reason For Visit Unknown Chief Complaint And Reason For Visit Reason For Referral Reason For Referral Unknown Plan Of Care Date Type Action Status Goal Lifestyle education regarding completed diet Appointment Florencia Anne BOOKED Appointment Florencia Anne BOOKED Future Order: Radiology Order Complete OB Ultrasound > 14 Ordered Weeks (09887) Future Order: Lab Order Pap Smear With [...]
--- OUTSIDE RECORDS SUMMARY | 2017-08-03 06:14 | External Medical Summary | Continuity of Care Document ---
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 [id number]. tel: tel:+ [phone] Associates True Suprvsn of Catherine Referring In Womens Ultrasound w grand 4-201 Brianne. Provider: Kevin HAYES, multiparity, 7 700 Brianne PO Box second Medical Catherine L, 1522, trimesterEncounte Center [address] [place] [address], for suprvsn of Harpal Jalloh, normal , 120, Center [id number], [facility] True [facility] 120, [place] [id number] weeks True NÚÑEZ, tel:+ gestation of [id number] [place] [address] , [place]. [id number]. tel: tel: [phone] Associates True Spotting Feb-1 Catherine Referring In Womens complicating 9-201 Brianne. Provider: Health PA, , second 7 700 Brianne PO Box trimesterEncounte Medical [facility] L, 1522, r for suprjamesn of Center [facility] Ja, normal , Dr Harpal Isabell NÚÑEZ, second 120, Center [id number], [id number] weeks [facility] 120, [place] gestation of True NÚÑEZ, tel: [phone] [place], , [place]. [id number]. tel: tel: [phone] Associates True Feb-1 Catherine In Womens 9-201 Brianne. Health PA, 7 700 PO Box Medical 1522, Center Dr Ja [facility] [place], 120, [id number], [place], [place], tel:901 , [place]. tel: [phone] Richard [place] Spotting Raji-1 Aman Referring In Womens complicating 8-201 Kuldeep. 700 Provider: Health ABIGAIL, , second 7 Medical Brianne PO Box trimesterEncounte [facility] L, 1522, r for suprvsn of Harpal Jalloh, normal , 120, Medical [place], second [place], [place] [id number], [id number] weeks [place] [facility] 120, [place] gestation of [id number] True, tel: , [place]. [place] tel:[phone] tel:[phone] Richard Banerjeen of Feb-1 Catherine Referring In Womens w grand 0-201 Brianne. Provider: Health ABIGAIL, multiparity, 7 700 Brianne PO Box second Medical [facility] L, 1522, trimesterEncounte [place] [address] Ja, r for suprvsn of Harpal Jalloh, normal , 120, Center [id number], second True [facility] 120, [place] [id number] weeks True NÚÑEZ, tel: gestation of [id number] [place], , [place]. [id number]. tel: tel:[phone] Associates True Encounter for 0 Catherine Referring In Womens suprvsn of normal 5-201 Brianne. Provider: Kevin HAYES, , second 7 700 Brianne PO Box trimester Medical Catherine L, 1522, Center 700 Ja, Harpal Jalloh, 120, Center [id number], [facility] 120, [place] True NÚÑEZ, tel: [phone] [place], , [place]. [id number]. tel: tel:[phone] Associates True Suprvsn of Catherine Referring In Womens w grand 2-201 Brianne. Provider: Kevin HAYES, multiparity, 7 700 Brianne PO Box first Medical Catherine L, 1522, trimesterEncounte Center 700 [place], r for suprvsn of Harpal Jalloh, normal , 120, Center [id number], first [id number] [facility] 120, [place] weeks gestation True NÚÑEZ, tel: of [phone] [place], , [place]. [id number]. tel: tel:[phone] Richard [place] Suprvsn of December- Catherine Referring In Womens w grand 3-201 Brianne. Provider: Kevin HAYES, multiparity, 7 700 Brianne PO Box first Medical Catherine L, 1522, trimesterEncntr Center [address] [place] [address], screen for Harpal Jalloh, infections w sexl 120, Center [id number], mode of [facility] 120, [place] transmissEncounte True NÚÑEZ, tel:[phone] r for screening [id number] [place], for oth , [place]. [id number]. infec/parastc tel: tel:+[phone] diseasesEncounter [phone] for suprvsn of normal , first trimesterEncounte r for screening of [id number] weeks gestation of Associates True Irregular Menses Apr-2 Levin Referring In Womens 5-201 Perla. Provider: Kevin HAYES, 7 700 Brianne PO Box Medical Catherine L, 1522, Center 700 Dr Ja, [facility] [place], 120, Center [id number], True, [facility] 120, [place] True NÚÑEZ, tel:[phone] [place], , [place]. [id number]. 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 Provider: Health ABIGAIL, (routine) w/o abn 6 700 Brianne PO Box findingsPap Smear Medical [facility] L, 1522, Screening, Cervix Center [address] Dr Ja, [facility] [place], 120, Center [id number], True, [facility] 120, [place] True NÚÑEZ, tel:[phone] [place], , [place]. [id number]. 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 Provider: Kevin HAYES, (routine) w/o abn 5 700 Brianne PO Box findings [facility] L, 1522, Center [address] Dr Ja, [facility] [place], 120, Center [id number], True, [facility] 120, [place] True NÚÑEZ, tel:+[phone] [place], , [place]. [id number]. tel: tel:[phone] Richard [place] May- Ollie Referring In Womens Perla. Provider: Kevin HAYES, 5 700 Brianne PO Box Medical [facility] L, 1522, Center [address] Dr Ja, [facility] [place], 120, Center [id number], True, [facility] 120, [place] True NÚÑEZ, tel:+[phone] [place], , [place]. [id number]. tel: tel:[phone] Richard [place] Nov-2 Vincent Referring In Womens Varsha. Provider: Kevin HAYES, 1 700 Eleni PO Box [facility] 1522, Center B, [place]. Dr Ja, [facility] [place], 120, [id number] [place] [address], tel:[phone] , . tel: [phone] Family History Family Member Diagnosis Age At Onset Brother Renal disease Sister Hypertension Father Hypertension Paternal grandfather Diabetes mellitus Maternal Grandmother Unknown Cancer Brother Stroke Brother Hypertension Mother Hypertension Immunizations Vaccine Date Status Comments Unknown Payers Payer name Insurance type Covered libertarian ID Authorization(s) [facility] [id number] Social History Type Description Quantity Date Captured [...] Complete OB Ultrasound > 14 Ordered Weeks (85307) Future Order: Lab Order Pap Smear With [...]
--- OUTSIDE RECORDS SUMMARY | 2017-08-03 06:14 | External Medical Summary | Continuity of Care Document ---
:1985 Author Organization [facility] [employer] [place] Address [address] [place], [place] [address] Phone Support Name Relationship Address Phone Sushil Anne spouse [address] [phone] [place] [address] Allergies, Adverse Reactions, Alerts Substance Reaction Severity Status No Known Drug Allergies Unknown Active Medications Medication Instructions Dosage Effective Dates Status Comments (start - stop) ONE DAILY take 1 tablet by - Active (unknown strength) oral route every day Zantac 75 mg tablet take 1 tablet by 75 MG - Active oral route 2 times every day with glass of water azithromycin 250 mg take 2 tablet by 500 MG - No Longer tablet oral route every Active day for 1 day then 1 tablet (250 mg) by oral route once daily for 4 days Problems Condition Effective Dates (start - stop) Clinical Status Encntr for rn gyn exam (general) - (routine) w/o abn findings Encntr for rn gyn exam (general) - (routine) w/o abn findings Suprvsn of w grand - multiparity, third trimester 34 weeks gestation of - Suprvsn of w [...] third trimester 32 weeks gestation of - Spotting complicating , [...] Womens w grand 2-201 Brianne. Provider: Kevin HAYES multiparity, 7 700 Brianne PO Box third Medical Catherine L, 1522, trimesterEncounte Center 700 [place], r for suprvsn of Harpal Jalloh, normal , 120, Center [id number], third [id number] True [facility] 120, [place] weeks gestation True NÚÑEZ, tel:+ of [phone] [place], , [place]. [id number]. tel: tel:+ [phone] Richard Kiran of 0 Catherine Referring In Womens w grand 8-201 Brianne. Provider: Kevin HAYES multiparity, 7 700 Brianne PO Box third Medical Catherine L, 1522, weeks gestation Center 700 [place], of Harpal Jalloh, 120, Center [id number], True [facility] 120, [place] True NÚ[place], tel: [phone] [place], , [place]. [id number]. tel: tel:[phone] Richard Banerjeen of Catherine Referring In Womens w grand 5-201 Brianne. Provider: Kevin HAYES multiparity, 7 700 Brianne PO Box third Medical Catherine L, 1522, trimesterEncounte Center 700 [place], r for suprvsn of Harpal Jalloh, normal , 120, Center [id number], third [id number] True [facility] 120, [place] weeks gestation True NÚÑEZ, tel:+[phone] of [phone] [place], , [place]. [id number]. tel: tel:[phone] Richard Kiran of Catherine Referring In Womens w grand 1-201 Brianne. Provider: Health PA, multiparity, 7 700 Brianne PO Box third Medical Catherine L, 1522, weeks gestation Center [address] [place] [address], of Harpal Jalloh, 120, Center [id number], True [facility] 120, [place] True NÚÑEZ, tel:[phone] [place], , [place]. [id number]. tel: tel:[phone] Associates True Banerjeen of Catherine Referring In Womens w grand 0-201 Brianne. Provider: Health ABIGAIL, multiparity, 7 700 Brianne PO Box second Medical Catherine L, 1522, trimesterEncounte Center [address] [place] [address], for suprvsn of Harpal Jalloh, normal , 120, Center [id number], [facility] True [facility] 120, [place] [email or web address] weeks True NÚÑEZ, tel:+ gestation of [phone] [place], , [place]. [id number]. tel: tel:[phone] Richard Kiran of Catherine Referring In Womens w grand 1-201 Brianne. Provider: Health ABIGAIL, multiparity, 7 700 Brianne PO Box second Medical Catherine L, 1522, trimesterEncounte Center [address] [place] [address], r for suprvsn of Harpal Jalloh, normal , 120, Center [id number], [facility] True [facility] 120, [place] [id number] weeks Ture NÚÑEZ, tel:+ gestation of [phone] [place], , [place]. [id number]. tel: tel:[phone] Associates True HypokalemiaEncoun Catherine Referring In Womens ter for suprvsn 4-201 Brianne. Provider: Kevin HAYES, of normal 7 700 Brianne PO Box , second Medical Catherine L, 1522, [id number] weeks Center [facility] [place], gestation of Harpal Jalloh, 120, Center [id number], True [facility] 120, [place] True NÚÑEZ, tel:[phone] [place], , [place]. [id number]. tel: tel: [phone] Associates True Kiran of Catherine Referring In Womens Ultrasound w grand 4-201 Brianne. Provider: Kevin HAYES, multiparity, 7 700 Brianne PO Box second Medical Catherine L, 1522, trimesterEncounte Center [address] [place], [place] [address]ta, r for suprvsn of , [facility] [place], normal , 120, Center [id number], second [place], [facility] 120, [place] weeks True NÚÑEZ, tel: gestation of [phone] [place], , [place]. [id number]. tel: tel:[phone] Associates True Spotting Feb-1 Catherine Referring In Womens complicating 9-201 Brianne. Provider: Kevin HAYES, , second 7 700 Brianne PO Box [facility] L, 1522, r for supryuniel of [place] [address] [place], normal , Dr [facility] [place], second 120, Center [id number], [id number] weeks True [facility] 120, [place] gestation of True NÚÑEZ, tel: [phone] [place], , [place]. [id number]. tel: tel: [phone] Richard [place] Spotlexi Feb-1 Aman Referring In Womens complicating 8-201 Kuldeep. 700 Provider: Kevin HAYES, , second 7 Medical Brianne PO Box [facility], 1522, r for supryuniel of Harpal Jalloh, normal , 120, Medical [place], second True, [place] [id number], [id number] weeks [place], Harpal 120, [place] gestation of [id number] True, tel: , [place]. [place], tel:[phone] tel:[phone] Richard Kiran of Catherine Referring In Womens w grand 0-201 Brianne. Provider: Kevin HAYES, multiparity, 7 700 Brianne PO Box [facility] Medical Catherine L, 1522, trimesterEncounte Center [address] [place] [address], r for suprvsn of Harpal Jalloh, normal , 120, Center [id number], second True [facility] 120, [place] [id number] weeks True NÚÑEZ, tel:+ gestation of [phone] [place], , [place]. [id number]. tel: tel:[phone] Associates True Encounter for Catherine Referring In Womens suprvsn of normal 5-201 Brianne. Provider: Health [place], , second 7 700 Brianne PO Box trimester Medical Catherine L, 1522, Center [facility] [place], Harpal Jalloh, 120, Center [id number], True [facility] 120, [place] True NÚÑEZ, tel:[phone] [place], , [place]. [id number]. tel: tel:[phone] Richard [place] Suprvsn of Catherine Referring In Womens w grand 2-201 Brianne. Provider: Health PA, multiparity, 7 700 Brianne PO Box first Medical Catherine L, 1522, trimesterEncounte Center [address] [place] [address], r for suprvsn of Harpal Jalloh, normal , 120, Center [id number], first [id number] [place] [facility] 120, [place] weeks gestation True NÚÑEZ, tel: of [phone] [place], , [place]. [id number]. tel: tel:[phone] Ricahrd [place] Suprvsn of Catherine Referring In Womens w grand 3-201 Brianne. Provider: Health PA, multiparity, 7 700 Brianne PO Box first Medical Catherine L, 1522, trimesterEncntr Center [address] [place] [address], screen for Harpal Jalloh, infections w sexl 120, Center [id number], mode of True [facility] 120, US transmissEncounte True NÚÑEZ, tel:[phone] r for screening [id number] [place], for oth , [place]. [id number]. infec/parastc tel: tel:+[phone] diseasesEncounter [phone] for suprvsn of normal , first trimesterEncounte r for screening of weeks gestation of Associates True Irregular Menses Apr-2 Ollie Referring In Womens [facility]. Provider: Kevin HAYES, 7 700 Brianne PO Box Medical Catherine L, 1522, Center [address] Dr Ja, [facility] Medical [place], 120, Center [id number], True, [facility] 120, [place] True NÚÑEZ, tel:[phone] [place], , [place]. [id number]. tel: tel:[phone] Associates True Encntr for rn gyn Alvaro-0 Ollie Referring In Womens exam (general) [facility]. Provider: Kevin HAYES, (routine) w/o abn 6 700 Brianne PO Box findingsPap Smear Medical Catherine L, 1522, Screening, Cervix Center [address] Dr Ja, [facility] [place], 120, Center [id number], True [facility] 120, [place] True NÚÑEZ, tel:[phone] [place], , [place]. [id number]. tel: tel:[phone] Associates True Encntr for rn gyn Jun- Ollie Referring In Womens exam (general) [facility]. Provider: Kevin HAYES, (routine) w/o abn 5 700 Brianne PO Box findings Medical Catherine L, 1522, Center 700 Dr Ja, [facility] [place], 120, Center [id number], True, [facility] 120, [place] True NÚÑEZ, tel:[phone] [place], , [place]. [id number]. tel: tel:[phone] Associates True December- Ollie Referring In Womens [facility]. Provider: Kevin HAYES, 5 700 Brianne PO Box Medical Catherine L, 1522, Center [address] Dr Ja, [facility] [place], 120, Center [id number], True, [facility] 120, [place] True NÚÑEZ, tel:[phone] [place], , [place]. [id number]. tel: tel:[phone] Richard [place] Vincent Referring In Womens 8-201 Varsha. Provider: Kevin HAYES, 1 700 [facility] 1522, [place], [place]. Dr Ja, [facility], 120, [id number], [facility], tel:[phone] , . tel: [phone] Family History Family Member Diagnosis Age At Onset Brother Renal disease Sister Hypertension Father Hypertension Paternal grandfather Diabetes mellitus Maternal Grandmother Unknown Cancer Brother Stroke Brother Hypertension Mother Hypertension Immunizations Vaccine Date Status Comments Tdap completed Source: New Immunization Record Payers Payer name Insurance type Covered constitution party ID Authorization(s) [facility] [id number] [facility] [id number] Social History Type Description Quantity Date Captured [...] Complete OB Ultrasound > 14 Ordered Weeks (71739) Future Order: Lab Order Pap Smear With [...] Related to Body mass index 27.0- 27.9 Alvaro-01-2016 Lifestyle education regarding diet Related to Body mass index 27.0-27.9
--- OUTSIDE RECORDS SUMMARY | 2017-08-03 06:14 | External Medical Summary | Continuity of Care Document ---
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 [id number]. tel: tel: [phone] Associates True Suprvsn of Catherine Referring In Womens Ultrasound w grand 4-201 Brianne. Provider: Kevin HAYES, multiparity, 7 700 Brianne PO Box second Medical Catherine L, 1522, trimesterEncounte Center 700 [place], for suprvsn of Harpal Jalloh, normal , 120, Center [id number], [facility] Harpal [place] 120, [place] [id number] weeks True NÚÑEZ, tel:+[phone] gestation of [id number] [place] , [place]. [id number]. tel: tel:[phone] Richard [place] Spotting Feb-1 Catherine Referring In Womens complicating 9-201 Brianne. Provider: Kevin HAYES, , second 7 700 Brianne PO Box trimesterEncounte Medical Catherine L, 1522, r for suprvsn of [place] [address] Ja, normal , Dr [facility] [place] NÚÑEZ, second 120, Center [id number], [id number] weeks True [facility] 120, [place] gestation of True NÚÑEZ, tel:+ [phone] [place], , [place]. [id number]. tel: tel:[phone] Richard [place] Spotting Feb-1 Aman Referring In Womens complicating 8-201 Kuldeep. 700 Provider: Kevin HAYES, , second 7 Medical Brianne PO Box trimesterEncounte [facility] L, 1522, r for suprvsn of Dr [place] [address] Ja, normal , 120, Medical [place], second [place], [place] [id number], [id number] weeks HI [facility] 120, [place] gestation of [id number] [place], tel: , [place]. [place] tel:[phone] tel:[phone] Richard [place] Suprvsn of Feb-1 Catherine Referring In Womens w grand 0-201 Brianne. Provider: Kevin HAYES, multiparity, 7 700 Brianne PO Box second Medical Catherine L, 1522, trimesterEncounte Center [address] [place] [address], r for suprvsn of Dr [facility] [place] NÚÑEZ, normal , 120, Center [id number], second [facility] 120, [place] [email or web address] weeks True NÚÑEZ, tel:+ gestation of [phone] [place], , [place]. [id number]. tel: tel:[phone] Associates True Encounter for Raji-0 Catherine Referring In Womens suprvsn of normal 5-201 Brianne. Provider: Kevin HAYES, , second 7 700 Brianne PO Box trimester Medical Catherine L, 1522, Center 700 Dr Ja [facility] [place] NÚÑEZ, 120, Center [id number], [facility] 120, [place] True NÚÑEZ, tel:[phone] [place], , [place]. [id number]. tel: tel:[phone] Associates True Suprvsn of Catherine Referring In Womens w grand 2-201 Brianne. Provider: Kevin HAYES, multiparity, 7 700 Brianne PO Box first Medical Catherine L, 1522, trimesterEncounte Center 700 [place], r for suprvsn of Harpal Jalloh, normal , 120, Center [id number], first [id number] [facility] 120, [place] weeks gestation True NÚÑEZ, tel:+ of [phone] [place], , [place]. [id number]. tel: tel:[phone] Associates True Suprvsn of Catherine Referring In Womens w grand 3-201 Brianne. Provider: Kevin HAYES, multiparity, 7 700 Brianne PO Box first Medical Catherine L, 1522, trimesterEncntr Center [address] [place] [address], screen for Dr [facility] [place] NÚÑEZ, infections w sexl 120, Center [id number], mode [facility], [place] transmissEncounte True NÚÑEZ, tel:[phone] r for screening [id number] [place], for oth , [place]. [id number]. infec/parastc tel: tel:+[phone] diseasesEncounter [phone] for suprvsn of normal , first trimesterEncounte r for screening of [id number] weeks gestation of Associates True Irregular Menses Nov- Levin Referring In Womens 5-201 Perla. Provider: Kevin HAYES, 7 700 Brianne PO Box Medical Catherine L, 1522, Center 700 Ja, Harpal Jalloh, 120, Center [id number], [facility], [place] True NÚ[place], tel:[phone] [place], , [place]. [id number]. 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 Provider: Health ABIGAIL, (routine) w/o abn 6 700 Brianne PO Box findingsPap Smear Medical [facility], 1522, Screening, Cervix Center [address] Dr Ja, [facility] [place], 120, Center [id number], True, [facility] 120, True NÚÑEZ, tel:+ [phone] [facility] , [place]. [id number]. 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 Provider: Kevin HAYES, (routine) w/o abn 5 700 Brianne PO Box findings Medical [facility], 1522, Center [address] Dr Ja, [facility], 120, Center [id number], True, [facility] 120, True NÚÑEZ, tel:+[phone] [place], , [place]. [id number]. tel: tel: [phone] Richard Biswas December- Ollie Referring In Womens Perla. Provider: Kevin HAYES, 5 700 Brianne PO Box [facility], 1522, Center [address] Dr Ja, [facility] [place], 120, Center [id number], True, [facility] 120, [place] True NÚÑEZ, tel:[phone] [place], , [place]. [id number]. tel: tel:[phone] Richard Biswas Nov-2 Vincent Referring In Womens 8 Varsha. Provider: Kevin HAYES, 1 700 Eleni PO Box [facility] 1522, Center B, [place]. Dr Ja, [facility] [place], 120, [id number] [place], [place], tel:[phone] , [place]. tel: [phone] Family History Family Member Diagnosis Age At Onset Brother Renal disease Sister Hypertension Father Hypertension Paternal grandfather Diabetes mellitus Maternal Grandmother Unknown Cancer Brother Stroke Brother Hypertension Mother Hypertension Immunizations Vaccine Date Status Comments Unknown Payers Payer name Insurance type Covered republican ID Authorization(s) [facility] [id number] Social History Type Description Quantity Date Captured [...] Complete OB Ultrasound > 14 Ordered Weeks (01897) Future Order: Lab Order Pap Smear With [...]
--- OUTSIDE RECORDS SUMMARY | 2017-08-03 06:15 | External Medical Summary | Continuity of Care Document ---
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) - (routine) w/o abn findings Suprvsn of w grand - multiparity, second trimester 27 weeks gestation of - Encounter for suprvsn of normal - , second trimester Hypokalemia - Encounter for suprvsn of normal [...] second trimester 17 weeks gestation of - Pap Smear Screening, Cervix - Encounter for suprvsn of normal - , second trimester Spotting complicating , - second trimester Encounter for suprvsn of normal - , second trimester 18 weeks gestation of - Spotting complicating , - second trimester Encounter for suprvsn of normal - , second trimester 18 weeks gestation of - Suprvsn of w grand - multiparity, second trimester Encounter for suprvsn of normal - , second trimester 23 weeks gestation of - Inappropriate Change In Quantitative - Active HCG In Early Urinary Frequency - Active Procedures Procedure Date Unknown Results Test Name Date and Time Measure Units Reference Range Abnormal Flag Comments Unknown Advance Directives Directive Yes / No Effective Date File Name Unknown Encounters Encounter Practice Location Reason(s) Diagnoses Date Provider Care Team Description For Visit Members Associates True Banerjeen of [place] Referring In Womens w grand 0-201 Brianne. Provider: Health PA, multiparity, 7 700 Brianne [address] rico Alexander L, 1522, [id number] weeks Center [address] [place], gestation of Dr [facility] [place] NÚÑEZ, pregnancyEncanderson sanatorium[facility] 120, [place] [id number], r for suprvsn of True [address] normal , True NÚÑEZ, tel:316 second trimester [id number] [place], [id number] , [place]. [id number]. tel: tel:+ [phone] Richard [place] Sep-0 Catherine In Womens 5-201 Brianne. Health PA, 7 700 PO Box Medical 1522, Center Ja, Harpal Jalloh [place], 120, [id number], True, [facility], tel:+ [phone] , [place]. tel: [phone] Richard Banerjeen of Catherine Referring In Womens w grand 1-201 Brianne. Provider: Health PA, multiparity, 7 700 Brianne PO Box second Medical Catherine L, 1522, trimesterEncounte Center 700 Ja, r for suprvsn of Harpal Jalloh, normal , 120, Center [id number], second True [facility] 120, [place] [id number] weeks True NÚÑEZ, tel:+ gestation of [phone] [place], , [place]. [id number]. tel: tel: [phone] Richard [place] HypokalemiaEncoun Catherine Referring In Womens ter for suprvsn 4-201 Brianne. Provider: Kevin HAYES, of normal 7 700 Brianne PO Box , second Medical Catherine L, 1522, [email or web address] weeks Center [facility] Ja, gestation of Harpal Jalloh, 120, Center [id number], True [facility] 120, [place] True NÚÑEZ, tel:+ [phone] [place], , [place]. [id number]. tel: tel: [phone] Richard Kiran of Catherine Referring In Womens Ultrasound w grand 4-201 Brianne. Provider: Health ABIGAIL, multiparity, 7 700 Brianne PO Box second Medical Catherine L, 1522, trimesterEncounte Center [facility] bubba Peres for suprvsn of Harpal Jalloh, normal , 120, Center [id number], second True [facility] 120, [place] [id number] weeks True NÚÑEZ, tel:+[phone] gestation of [phone] [place], , [place]. [id number]. tel: tel:[phone] Richard [place] Spotting Raji-1 Catherine Referring In Womens complicating 9-201 Brianne. Provider: Health PA, , second 7 700 Brianne PO Box trimesterEncounte Medical Catherine L, 1522, r for suprvsn of Center 700 Ja, normal , Dr [facility] [place] NÚÑEZ, second 120, Center [id number], [id number] weeks True [facility] 120, [place] gestation of True NÚÑEZ, tel:+ [phone] [place], , [place]. [id number]. tel: tel:[phone] Richard [place] Spotting Raji-1 Aman Referring In Womens complicating 8-201 Kuldeep. 700 Provider: Health ABIGAIL, , second 7 Medical Brianne PO Box trimesterEncounte [facility] L, 1522, r for suprvsn of Harpal Jalloh, normal , 120, Medical [place], second True, [place] [id number], [id number] weeks [place], [facility] 120, [place] gestation of [id number] [place], tel: , [place]. [place] tel:[phone]. [id number] tel:[phone] Richard [place] Suprvsn of Feb-1 Catherine Referring In Womens w grand 0-201 Brianne. Provider: Health ABIGAIL, multiparity, 7 700 Brianne PO Box second Medical Catherine L, 1522, trimesterEncounte Center [address] [place], r for suprvsn of Dr [facility] [place] NÚÑEZ, normal , 120, Center [id number], second True [facility] 120, [place] [id number] weeks True NÚÑEZ, tel:+ gestation of [phone] [place], , [place]. [id number]. tel: tel:[phone] Richard [place] Encounter for Raji-0 Catherine Referring In Womens suprvsn of normal 5-201 Brianne. Provider: Health ABIGAIL, , second 7 700 Brianne PO Box trimester Medical Catherine L, 1522, Center 700 Dr Ja [facility] [place], 120, Center [id number], True [facility] 120, [place] True NÚÑEZ, tel:[phone] [place], , [place]. [id number]. tel: tel:[phone] Associates True Kiran of Catherine Referring In Womens w grand 2-201 Brianne. Provider: Kevin HAYES, multiparity, 7 700 Brianne PO Box first Medical Catherine L, 1522, trimesterEncounte Center 700 [place], r for suprvsn of Harpal Jalloh, normal , 120, Center [id number], first [id number] [facility] 120, [place] weeks gestation True NÚÑEZ, tel:+ of [phone] [place], , [place]. [id number]. tel: tel:[phone] Associates True Kiran of Catherine Referring In Womens w grand 3-201 Brianne. Provider: Kevin HAYES, multiparity, 7 700 Brianne PO Box [facility] Medical Catherine L, 1522, trimesterEncounte Center 700 [place], r for suprvsn of Harpal Jalloh [place], normal , 120, Center [id number], first [facility] 120, [place] trimesterEncntr True NÚÑEZ, tel: screen for [phone] [place], infections w sexl , [place]. [id number]. mode of tel: tel:+[phone] transmissEncounte [phone] r for screening for oth infec/parastc diseasesEncounter for screening of usacju81 weeks gestation of Associates True Irregular Menses Nov- Ollie Referring In Womens Perla. Provider: Kevin HAYES, 7 700 Brianne PO Box Medical Catherine L, 1522, Center 700 Dr Ja [facility], 120, Center [id number], [facility] 120, [place] True NÚÑEZ, tel:[phone] [place], , [place]. [id number]. tel: tel:[phone] Richard [place] Pap Smear Alvaro-0 Ollie Referring In Womens Screening, Perla. Provider: Kevin HAYES, CervixEncntr for 6 700 Brianne PO Box calibration specialist exam Medical Catherine L, 1522, (general) Center 700 Ja, (routine) w/o abn , [facility], findings 120, Center [id number], True, [facility] 120, [place] True NÚÑEZ, tel:[phone] [place], , [place]. [id number]. 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 Provider: Kevin HAYES, (routine) w/o abn 5 700 Brianne PO Box findings Medical Catherine L, 1522, Center 700 Dr Ja, [facility] [place], 120, [place] [id number], True, [facility] 120, [place] True NÚÑEZ, tel:[phone] [place], , [place]. [id number]. tel: tel:+ [phone] Richard [place] December- Ollie Referring In Womens Perla. Provider: Kevin HAYES, 5 700 Brianne PO Box Medical [facility] L, 1522, Center 700 Dr Ja, [facility], 120, [place] [id number], True, [facility] 120, [place] True NÚÑEZ, tel:[phone] [place], , [place]. [id number]. tel: tel:+ [phone] Richard [place] Jun- Vincent Referring In Womens Varsha. Provider: Kevin HAYES, 1 700 Eleni PO Box Medical [facility] 1522, Center B, [place]. Dr Ja, [facility] [place], 120, [id number], True, [place], tel:[phone] , [place]. tel: [phone] Family History Family Member Diagnosis Age At Onset Brother Renal disease Sister Hypertension Father Hypertension Paternal grandfather Diabetes mellitus Maternal Grandmother Unknown Cancer Brother Stroke Brother Hypertension Mother Hypertension Immunizations Vaccine Date Status Comments Unknown Payers Payer name Insurance type Covered libertarian ID Authorization(s) [facility] [id number] Social History Type Description Quantity Date Captured [...] Florencia Anne BOOKED Appointment Florencia Anne BOOKED Appointment Florencia Anne BOOKED Appointment Florencia Anne BOOKED Future Order: Radiology Order Complete OB Ultrasound > 14 Ordered Weeks ([id number]) Future Order: Lab Order Pap Smear With [...]
--- OUTSIDE RECORDS SUMMARY | 2017-08-03 06:15 | External Medical Summary | Continuity of Care Document ---
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 [id number]. tel: tel:+ [phone] Richard [place] Suprvsn of Catherine Referring In Womens Ultrasound w grand 4-201 Brianne. Provider: Kevin HAYES, multiparity, 7 700 Brianne PO Box second Medical Catherine L, 1522, trimesterEncounte Center [address] [place] [address], for suprvsn of Harpal Jalloh, normal , 120, Center [id number], [facility] True [facility] 120, [place] [email or web address] weeks True NÚÑEZ, tel:+ gestation of [phone] [place] [address] , [place]. [id number]. tel: tel: [phone] Associates True Spotlexi Feb-1 Catherine Referring In Womens complicating 9-201 Brianne. Provider: Health PA, , second 7 700 Brianne PO Box [facility]Encvalleycare medical cent[facility] L, 1522, r for suprvsn of [place] [address] Ja, normal , Harpal Jalloh, second 120, Center [id number], [id number] weeks [facility] 120, [place] gestation of True NÚÑEZ, tel: [phone] [place], , [place]. [id number]. tel: tel: [phone] Associates True Spotlexi Feb-1 Aman Referring In Womens complicating 8-201 Kuldeep. 700 Provider: Health ABIGAIL, , second 7 Medical Brianne PO Box trimesterEncvalleycare medical centere [facility] L, 1522, r for suprvsn of Dr [address], normal , 120, Medical [place], second True, [place] , [email or web address] weeks [facility] 120, [place] gestation of [id number] True, tel: , [place]. [place], tel:[phone]. [id number] tel:[phone] Associates True Feb-1 Catherine In Womens 3-201 Brianne. Health PA, 7 700 [facility] Medical 1522, Center Ja, Harpal Jalloh, 120, [id number], [place], [place], tel: [phone] , [place]. tel: [phone] Richard [place] Suprjamesn of Feb- Catherine Referring In Womens w grand 0-201 Brianne. Provider: Health ABIGAIL, multiparity, 7 700 Brianne PO Box [facility] L, 1522, [email or web address] weeks Center Elis [place], gestation of Harpal Jalloh, pregnancyEncounte 120, Center [id number], r for suprvsn of True [facility] 120, [place] normal , True NÚÑEZ, tel: second trimester [phone] [place], , [place]. [id number]. tel: tel:[phone] Associates True Encounter for 0 Catherine Referring In Womens suprvsn of normal 5-201 Brianne. Provider: Kevin HAYES, , second 7 700 Brianne PO Box trimester Medical Catherine L, 1522, Center 700 Ja, Harpal Jalloh, 120, Center [id number], [facility] 120, [place] True NÚÑEZ, tel: [phone] [place], , [place]. [id number]. tel: tel:[phone] Associates True Suprvsn of Catherine Referring In Womens w grand 2-201 Brianne. Provider: Kevin HAYES, multiparity, 7 700 Brianne PO Box first Medical Catherine L, 1522, trimesterEncounte Center 700 [place], r for suprvsn of Harpal Jalloh, normal , 120, Center [id number], first [id number] [facility] 120, [place] weeks gestation True NÚÑEZ, tel: of [phone] [place], , [place]. [id number]. tel: tel:[phone] Richard [place] Suprvsn of December- Catherine Referring In Womens w grand 3-201 Brianne. Provider: Kevin HAYES, multiparity, 7 700 Brianne PO Box first Medical Catherine L, 1522, trimesterEncntr Center [address] [place] [address], screen for Harpal Jalloh, infections w sexl 120, Center [id number], mode of [facility] 120, [place] transmissEncounte True NÚÑEZ, tel:[phone] r for screening [phone] [place], for oth , [place]. [id number]. infec/parastc tel: tel:+[phone] diseasesEncounter [phone] for suprvsn of normal , first trimesterEncounte r for screening of weeks gestation of Associates True Irregular Menses Apr-2 Levin Referring In Womens 5-201 Perla. Provider: Kevin HAYES, 7 700 Brianne PO Box Medical Catherine L, 1522, Center [address] Dr Ja, [facility] [place], 120, Center [id number], True, [facility] 120, [place] True NÚÑEZ, tel:[phone] [place], , [place]. [id number]. 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 Provider: Health ABIGAIL, (routine) w/o abn 6 700 Brianne PO Box findingsPap Smear [facility] L, 1522, Screening, Cervix Center [address] Dr Ja, [facility] [place], 120, Center [id number], True, [facility] 120, [place] True NÚÑEZ, tel:[phone] [place], , [place]. [id number]. 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 Provider: Kevin HAYES, (routine) w/o abn 5 700 Brianne PO Box findings [facility] L, 1522, Center [address] Dr Ja, [facility] [place], 120, Center [id number], True, [facility] 120, [place] True NÚÑEZ, tel:[phone] [place], , [place]. [id number]. tel: tel:+[phone] Richard [place] May- Ollie Referring In Womens Perla. Provider: Kevin HAYES, 5 700 Brianne PO Box [facility] L, 1522, Center [address] Dr Ja, [facility] [place], 120, Center [id number], True, [facility] 120, [place] True NÚÑEZ, tel:+[phone] [place], , [place]. [id number]. tel: tel:[phone] Richard [place] Nov-2 Vincent Referring In Womens Varsha. Provider: Kevin HAYES, 1 700 Eleni PO Box [facility] 1522, Center B, [place]. Dr Ja, [facility] [place], 120, [id number] [place] [address], tel:[phone] , . tel: [phone] Family History Family Member Diagnosis Age At Onset Brother Renal disease Sister Hypertension Father Hypertension Paternal grandfather Diabetes mellitus Maternal Grandmother Unknown Cancer Brother Stroke Brother Hypertension Mother Hypertension Immunizations Vaccine Date Status Comments Unknown Payers Payer name Insurance type Covered libertarian ID Authorization(s) [facility] [id number] Social History Type Description Quantity Date Captured [...] Complete OB Ultrasound > 14 Ordered Weeks ([id number]) Future Order: Lab Order Pap Smear With [...]
--- OUTSIDE RECORDS SUMMARY | 2017-08-03 06:15 | External Medical Summary | Continuity of Care Document ---
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 Provider: Health PA, multiparity, 7 700 Brianne PO Box [facility] Catherine Charles, 1522, [facility] [address] [place] [address], for suprvsn of Harpal Jalloh, normal , 120, Center [id number], third [email or web address] True Harpal 120, [place] weeks gestation True NÚÑEZ, tel:+ of [phone] [place], , [place]. [id number]. tel: tel:[phone] Richard Biswas Suprjamesn of Catherine Referring In Womens w grand 1-201 Brianne. Provider: Health ABIGAIL, multiparity, 7 700 Brianne PO Box third Medical Catherine L, 1522, weeks gestation Center [address] [place] [address], of Harpal Jalloh, 120, Center [id number], True [facility] 120, [place] True NÚÑEZ, tel:[phone] [place], , [place]. [id number]. tel: tel:[phone] Richard Biswas Suprjamesn of Catherine Referring In Womens w grand 0-201 Brianne. Provider: Kevin HAYES, multiparity, 7 700 Brianne PO Box second Medical Catherine L, 1522, trimesterEncounte Center [address] [place], [place] [address]ta, r for suprvsn of Harpal Jalloh, normal , 120, Center [id number], second True Harpal 120, [place] weeks True NÚÑEZ, tel:+2 gestation of [phone] [place], , [place]. [id number]. tel: tel:+[phone] Richard Biswas Suprjamesn of Catherine Referring In Womens w grand 1-201 Brianne. Provider: Kevin HAYES, multiparity, 7 700 Brianne PO Box second Medical Catherine L, 1522, trimesterEncounte Center [address] [place] [address], bubab for suprvsn of Harpal Jalloh, normal , 120, Center [id number], second True Harpal 120, [place] weeks True NÚÑEZ, tel:+[phone] gestation of [id number] [place], , [place]. [id number]. tel: tel:[phone] Richard Biswas HypokalemiaEncoun Feb-[address] Catherine [address] In Wom[address] ter for suprvsn 4-201 Brianne. Provider: Health ABIGAIL, of normal 7 700 Brianne PO Box , second Medical Catherine L, 1522, weeks Center 700 [place], gestation of Harpal Jalloh, 120, Center [id number], True, [facility] 120, [place] True NÚÑEZ, tel:[phone] [place], , [place]. [id number]. tel: tel:[phone] Associates True Suprvsn of Feb-2 Catherine Referring In Womens Ultrasound w grand 4-201 Brianne. Provider: Health ABIGAIL, multiparity, 7 700 Brianne PO Box second Medical Catherine L, 1522, trimesterEncounte Center [address] [place], [place] [address]ta, r for suprvsn of Harpal Jalloh, normal , 120, Center [id number], second True [facility] 120, [place] [email or web address] weeks True NÚÑEZ, tel:+316 gestation of [id number] [place], , [place]. [id number]. tel: tel:[phone] Richard Biswas Spotting Feb- Catherine Referring In Womens complicating 9-201 Brianne. Provider: Kevin HAYES, , second 7 700 Brianne PO Box trimesterEncounte Medical Catherine L, 1522, r for suprvsn of [place] [address] [place], normal , Harpal Jalloh, second 120, Center [id number], [email or web address] weeks True Harpal 120, [place] gestation of True NÚÑEZ, tel:[phone] [place], , [place]. [id number]. tel: tel:[phone] Associates True Spotlexi Feb- Aman Referring In Womens complicating 8-201 Kuldeep. 700 Provider: Kevin HAYES, , second 7 Medical Brianne PO Box trimesterEncounte Center [facility] L, 1522, r for suprvsn of Harpal Jalloh, normal , 120, Medical [place], second True, [place] [id number], [email or web address] weeks [place], Harpal 120, [place] gestation of [id number] Bis[place], tel: , [place]. [place] tel:[phone]. [phone] tel:[phone] Richard Biswas Suprvsn of Ctaherine Referring In Womens w grand 0-201 Brianne. Provider: Kevin HAYES, multiparity, 7 700 Brianne PO Box second Medical Catherine L, 1522, [facility] 700 [place], for suprvsn of Harpal Jalloh, normal , 120, Center [id number], second Biswas, Harpal 120, [place] weeks True NÚÑEZ, tel: gestation of [id number] [place], , [place]. [id number]. tel: tel:+ [phone] Richard Biswas Encounter for Feb-0 Catherine Referring In Womens suprvsn of normal 5-201 Brianne. Provider: Kevin HAYES, , second 7 700 Brianne PO Box trimester Medical Catherine L, 1522, Center [facility] [place], Dr [facility] [place], 120, Center [id number], [facility] 120, [place] True NÚÑEZ, tel:[phone] [place], , [place]. [id number]. tel: tel: [phone] Richard Biswas Suprvsn of Catherine Referring In Womens w grand 2-201 Brianne. Provider: Kevin HAYES, multiparity, 7 700 Brianne PO Box first Medical Catherine L, 1522, [facility] Center 700 [place], for suprvsn of Harpal Jalloh, normal , 120, Center [id number], first [email or web address] Biswas, Harpal 120, [place] weeks gestation True NÚÑEZ, tel: of [phone] [place], , [place]. [id number]. tel: tel: [phone] Richard Biswas Suprvsn of Catherine Referring In Womens w grand 3-201 Brianne. Provider: Kevin HAYES, multiparity, 7 700 Brianne PO Box first Medical Catherine L, 1522, trimesterEncntr Center 700 [place], screen for Dr, [facility], infections w sexl 120, Center [id number], mode of [facility] 120, [place] transmissEncounte True NÚÑEZ, tel:[phone] r for screening [phone] [place], for oth , [place]. [id number]. infec/parastc tel: tel:+[phone] diseasesEncounter [phone] for suprvsn of normal , first trimesterEncounte r for screening of [email or web address] weeks gestation of Associates True Irregular Menses Apr- Ollie Referring In Womens 5-201 Perla. Provider: Kevin HAYES, 7 700 Brianne PO Box Medical Catherine L, 1522, Center [facility] Dr Ja, [facility], 120, Center [id number], [facility] 120, [place] True NÚÑEZ, tel:[phone] [place], , [place]. [id number]. 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 Provider: Health ABIGAIL, (routine) w/o abn 6 700 Brianne PO Box findingsPap Smear Medical Catherine L, 1522, Screening, Cervix Center [facility] Dr Ja, [facility], 120, Center [id number], [facility] 120, True NÚÑEZ, tel:[phone] [place], , [place]. [id number]. 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 Provider: Kevin HAYES, (routine) w/o abn 5 700 Brianne PO Box findings Medical Catherine L, 1522, Center [facility] Dr Ja, [facility], 120, Center [id number], [facility] 120, [place] True NÚÑEZ, tel:[phone] [place], , [place]. [id number]. tel: tel: [phone] Richard Biswas December- Levin Referring In Womens 8-201 Perla. Provider: Health PA, 5 700 Brianne Box Medical [facility] L, 1522, Center [address] Dr Ja, [facility], 120, [place] [id number], [facility] 120, [place], True, tel: [phone] [place], , [place]. [id number]. tel: tel: [phone] Richard Biswas Jun- Vincent Referring In Womens 8-201 Varsha. Provider: Health ABIGAIL, 1 700 Eleni [facility] 1522, Center B, [place]. Dr Ja, [facility], 120, [id number], Biswas, [facility], tel: [phone] , [place]. tel: [phone] Family History Family Member Diagnosis Age At Onset Brother Renal disease Sister Hypertension Father Hypertension Paternal grandfather Diabetes mellitus Maternal Grandmother Unknown Cancer Brother Stroke Brother Hypertension Mother Hypertension Immunizations Vaccine Date Status Comments Tdap completed Source: New Immunization Record Payers Payer name Insurance type Covered republican ID Authorization(s) [facility] [id number] [facility] [id number] Social History Type Description Quantity Date Captured [...] Complete OB Ultrasound > 14 Ordered Weeks (27846) Future Order: Lab Order Pap Smear With [...]
--- OUTSIDE RECORDS SUMMARY | 2017-08-03 06:15 | External Medical Summary | Continuity of Care Document ---
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 Provider: Health ABIGAIL, multiparity, 7 700 Brianne PO Box [facility] Medical Catherine L, 1522, [facility] bubba [place]res for suprvsn of Harpal Jalloh, normal , 120, [place] [id number], second True [facility] 120, [place] [email or web address] weeks True NÚÑEZ, tel: gestation of [phone] [place], , [place]. [id number]. tel: tel: [phone] Richard Biswas Catherine In Womens - Brianne. Health PA, 7 700 PO Box Medical 1522, [place] [address] [place], 120, [id number], Biswas, [facility], tel:[phone] , [place]. tel: [phone] Richard Biswas HypokalemiaEncoun Feb- Catherine Referring In Womens ter for suprvsn 4-201 Brianne. Provider: Health ABIGAIL, of normal 7 700 Brianne PO Box , second Medical Catherine L, 1522, [email or web address] weeks Center 700 Ja, gestation of Harpal Jalloh, 120, Center [id number], True [facility] 120, [place] True NÚÑEZ, tel:+ [phone] [place], , [place]. [id number]. tel: tel:+ [phone] Richard Biswas Suprvsn of Feb- Catherine Referring In Womens Ultrasound w grand 4-201 Brianne. Provider: Kevin HAYES, multiparity, 7 700 Brianne PO Box second Medical Catherine L, 1522, trimesterEncounte Center [address] [place] [address], r for suprvsn of Harpal Jalloh, normal , 120, Center [id number], [facility] True [facility] 120, [place] [email or web address] weeks True NÚÑEZ, tel:+ gestation of [phone] [place], , [place]. [id number]. tel: tel:+ [phone] Richard Biswas Spotlexi Catherine Referring In Womens complicating 9-201 Brianne. Provider: Kevin HAYES, , second 7 700 Brianne PO Box trimesterEncounte Medical Catherine L, 1522, r for suprvsn of [address], normal , Harpal Jalloh, second 120, Center [id number], [email or web address] weeks True [facility] 120, [place] gestation of True NÚÑEZ, tel:+ [phone] [place], , [place]. [id number]. tel: tel:[phone] Richard Biswas Spotlexi Aman Referring In Womens complicating 8-201 Kuldeep. 700 Provider: Kevin HAYES, , second 7 Medical Brianne PO Box trimesterEncounte Center [facility] L, 1522, r for suprvsn of Harpal Jalloh, normal , 120, Medical [place], second True, Center [id number], [email or web address] weeks [place] [facility] 120, [place] gestation of [id number] True, tel: , [place]. [place], tel:[phone]. [id number] tel:[phone] Richard Biswas Suprvsn of Catherine Referring In Womens w grand 0-201 Brianne. Provider: Kevin HAYES, multiparity, 7 700 Brianne PO Box second Medical Catherine L, 1522, [email or web address] weeks Center 700 Ja, gestation of Dr [facility] [place] NÚÑEZ, pregnancyEncounte 120, Center [id number], r for suprvsn of [facility] 120, US normal , True NÚÑEZ, tel: second trimester [phone] [place], , [place]. [id number]. tel: tel: [phone] Richard Biswas Encounter for Feb- Catherine Referring In Womens suprvsn of normal 5-201 Brianne. Provider: Kevin HAYES, , second 7 700 Brianne PO Box trimester Medical Catherine L, 1522, Center 700 Ja, Dr [facility] [place], 120, Center [id number], [facility] 120, [place] True NÚÑEZ, tel:[phone] [place], , [place]. [id number]. tel: tel: [phone] Richard Biswas Suprvsn of Catherine Referring In Womens w grand 2-201 Brianne. Provider: Kevin HAYES, multiparity, 7 700 Brianne PO Box first Medical Catherine L, 1522, trimesterEncounte Center 700 [place], r for suprvsn of Harpal Jalloh, normal , 120, Center [id number], first [email or web address] [facility] 120, [place] weeks gestation True NÚÑEZ, tel: of [phone] [place], , [place]. [id number]. tel: tel:[phone] Richard Biswas Suprvsn of Catherine Referring In Womens w grand 3-201 Brianne. Provider: Kevin HAYES, multiparity, 7 700 [place] PO Box first Medical Catherine L, 1522, trimesterEncntr Center 700 [place], screen for Dr, [facility], infections w sexl 120, Center [id number], mode of Biswas, [facility] 120, [place] transmissEncounte True NÚÑEZ, tel:[phone] r for screening [phone] [place], for oth , [place]. [id number]. infec/parastc tel: tel:+-[phone] diseasesEncounter [phone] for suprvsn of normal , first trimesterEncounte r for screening of weeks gestation of Associates True Irregular Menses Nov- Ollie Referring In Womens Perla. Provider: Kevin HAYES, 7 700 Brianne PO Box Medical Catherine L, 1522, Center 700 Ja, , [facility] [place], 120, Center [id number], [facility] 120, [place] True NÚÑEZ, tel:[phone] [place], , [place]. [id number]. 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 Provider: Kevin HAYES, (routine) w/o abn 6 700 Brianne PO Box findingsPap Smear Medical Catherine L, 1522, Screening, Cervix Center 700 Dr Ja, [facility] [place], 120, Center [id number], [facility] 120, [place] True NÚÑEZ, tel: [phone] [place], , [place]. [id number]. 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 Provider: Kevin HAYES, (routine) w/o abn 5 700 Brianne PO Box findings Medical Catherine L, 1522, Center 700 Dr Ja, [facility] Medical [place], 120, Center [id number], True, [facility] 120, [place] True NÚÑEZ, tel:[phone] [place], , [place]. [id number]. tel: tel: [phone] Richard Biswas December- Ollie Referring In Womens 8-201 Perla. Provider: Health PA, 5 700 Brianne [facility] Medical [facility] L, 1522, Center 700 Dr Ja, [facility] Medical [place], 120, [place] [address] [id number], [place] [address], [facility], Biswas, tel: [phone] MD, , . [id number]. tel: tel: [phone] Richard Biswas Jun- Vincent Referring In Womens 8-201 Varsha. Provider: Health ABIGAIL, 1 700 Eleni [facility] 1522, [place] B, [place]. Dr Ja, [facility], 120, [id number], [place], [facility], tel: [phone] , . tel: [phone] Family History Family Member Diagnosis Age At Onset Brother Renal disease Sister Hypertension Father Hypertension Paternal grandfather Diabetes mellitus Maternal Grandmother Unknown Cancer Brother Stroke Brother Hypertension Mother Hypertension Immunizations Vaccine Date Status Comments Unknown Payers Payer name Insurance type Covered alliance party ID Authorization(s) [facility] [id number] Social History Type Description Quantity Date Captured [...] Complete OB Ultrasound > 14 Ordered Weeks (67078) Future Order: Lab Order Pap Smear With [...] Treatment Unknown Instructions Date Instruction Additional Information [facility] docs new ob handbook Giving encouragement to exercise Related to Body mass index 27.0- 27.9 Lifestyle education regarding diet Related to Body mass index 27.0-27.9
--- OUTSIDE RECORDS SUMMARY | 2017-08-03 06:15 | External Medical Summary | Continuity of Care Document ---
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 [id number]. tel: tel: [phone] Associates True Suprvsn of Catherine Referring In Womens Ultrasound w grand 4-201 Brianne. Provider: Kevin HAYES, multiparity, 7 700 Brianne PO Box second Medical Catherine L, 1522, trimesterEncounte Center 700 [place], for suprvsn of Harpal Jalloh, normal , 120, Center [id number], [facility] Harpal Biswas 120, [place] weeks True NÚÑEZ, tel:+ gestation of [phone] [place] [address] , [place]. [id number]. tel: tel:+[phone] Richard Biswas Spotting Feb-1 Catherine Referring In Womens complicating 9-201 Brianne. Provider: Health ABIGAIL, , second 7 700 Brianne PO Box trimesterEncounte Medical Catherine L, 1522, r for suprvsn of [place] [address] Ja, normal , Dr [facility] [place] NÚÑEZ, second 120, Center [id number], [id number] weeks [facility], [place] gestation of True NÚÑEZ, tel:+[phone] [place], , [place]. [id number]. tel: tel:[phone] Richard Biswas Spotting Feb-1 Aman Referring In Womens complicating 8-201 Kuldeep. 700 Provider: Kevin HAYES, , second 7 Medical Brianne PO Box trimesterEncounte [place] Catherine L, 1522, r for suprvsn of Dr [place] [address] Ja, normal , 120, Medical [place], second [place], [place] [id number], [email or web address] weeks [facility], [place] gestation of [id number] Biswas, tel: , [place]. [place] tel:[phone]. [id number] tel:[phone] Richard Biswas Suprvsn of Feb-1 Catherine Referring In Womens w grand 0-201 Brianne. Provider: Kevin HAYES, multiparity, 7 700 Brianne PO Box second Medical Catherine L, 1522, trimesterEncounte Center [address] [place], [place] [address]ta, r for suprvsn of Dr [facility] [place] NÚÑEZ, normal , 120, Center [id number], second [facility] 120, [place] [email or web address] weeks True NÚÑEZ, tel:+316 gestation of [id number] [place], , [place]. [id number]. tel: tel:[phone] Richard Biswas Encounter for Raji-0 Catherine Referring In Womens suprvsn of normal 5-201 Brianne. Provider: Kevin HAYES, , second 7 700 Brianne PO Box trimester Medical Catherine L, 1522, Center [facility] Dr Ja [facility] [place] NÚÑEZ, 120, Center [id number], [facility] 120, [place] True NÚÑEZ, tel:+ [phone] [place], , [place]. [id number]. tel: tel:+[phone] Associates True Suprvsn of Catherine Referring In Womens w grand 2-201 Brianne. Provider: Kevin HAYES, multiparity, 7 700 Brianne PO Box first Medical Catherine L, 1522, trimesterEncounte Center [address] [place] [address], r for suprvsn of , [facility] [place] NÚÑEZ, normal , 120, Center [id number], first [email or web address] [facility] 120, [place] weeks gestation True NÚÑEZ, tel:+ of [phone] [place], , [place]. [id number]. tel: tel:[phone] Richard Biswas Suprvsn of Catherine Referring In Womens w grand 3-201 Brianne. Provider: Kevin HAYES, multiparity, 7 700 Brianne PO Box first Medical Catherine L, 1522, trimesterEncntr Center [address] [place] [address], screen for Dr [facility] [place], infections w sexl 120, Center [id number], mode of [facility] 120, [place] transmissEncounte True NÚÑEZ, tel:[phone] r for screening [phone] [place], for oth , [place]. [id number]. infec/parastc tel: tel:+316 diseasesEncounter [phone] for suprvsn of normal , first trimesterEncounte r for screening of [id number] weeks gestation of Associates True Irregular Menses Apr-2 Levin Referring In Womens 5-201 Perla. Provider: Kevin HAYES, 7 700 Brianne PO Box Medical Catherine L, 1522, Center [facility] Ja, Harpal Jalloh, 120, Center [id number], [facility] 120, [place] True NÚÑEZ, tel:[phone] [place], , [place]. [id number]. 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 Provider: Health ABIGAIL, (routine) w/o abn 6 700 Brianne PO Box findingsPap Smear Medical [facility], 1522, Screening, Cervix Center [address] Dr Ja, [facility] [place], 120, Center [id number], True, [facility] 120, True NÚÑEZ, tel: [phone] [facility] , [place]. [id number]. 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 Provider: Kevin HAYES, (routine) w/o abn 5 700 Brianne PO Box findings Medical [facility] L, 1522, Center [address] Dr Ja, [facility], 120, Center [id number], [facility] 120, True NÚÑEZ, tel: [phone] [place], , [place]. [id number]. tel: tel: [phone] Richard Biswas December- Ollie Referring In Womens Perla. Provider: Kevin HAYES, 5 700 Brianne PO Box [facility], 1522, Center [address] Dr Ja, [facility], 120, Center [id number], True, [facility] 120, [place] True NÚÑEZ, tel: [phone] [place], , [place]. [id number]. tel: tel:[phone] Biswas Jun-2 Vincent Referring In Womens 8- Varsha. Provider: Kevin HAYES, 1 700 Eleni PO Box [facility] 1522, Center B, [place]. Dr Ja, [facility] [place], 120, [id number], True, [place], tel:[phone] , [place]. tel: [phone] Family History Family Member Diagnosis Age At Onset Brother Renal disease Sister Hypertension Father Hypertension Paternal grandfather Diabetes mellitus Maternal Grandmother Unknown Cancer Brother Stroke Brother Hypertension Mother Hypertension Immunizations Vaccine Date Status Comments Unknown Payers Payer name Insurance type Covered libertarian ID Authorization(s) [place] [id number] Social History Type Description Quantity Date Captured Alcohol Use Details No Caffeine Use Details Unknown Tobacco Use Status Unknown Smoking Status Never smoker Vital Signs Date / Height Weight BMI Pulse Blood Temperature Respiratory Body Head BMI Time: Rate Pressure Rate Surface Circumference percentile Area 146.30 27.1 110/ lbs 9 mm[Hg] 3:36 kg/m PM eter (2) Chief Complaint And Reason For Visit Unknown Chief Complaint And Reason For Visit Reason For Referral Reason For Referral Unknown Plan Of Care Date Type Action Status Goal Lifestyle education regarding completed diet Appointment Florencia Anne BOOKED Future Order: Radiology Order Complete OB Ultrasound > 14 Ordered Weeks (48743) Future Order: Lab Order Pap Smear With [...]
--- OUTSIDE RECORDS SUMMARY | 2017-08-03 06:15 | External Medical Summary | Continuity of Care Document ---
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 [id number]. tel: tel: [phone] Associates True Suprvsn of Catherine Referring In Womens Ultrasound w grand 4-201 Brianne. Provider: Kevin HAYES, multiparity, 7 700 Brianne PO Box second Medical Catherine L, 1522, trimesterEncounte Center [address] [place], for suprvsn of Harpal Jalloh, normal , 120, Center [id number], [facility] Harpal Biswas 120, [place] weeks True NÚÑEZ, tel:+ gestation of [phone] [place] [address] , [place]. [id number]. tel: tel:[phone] Richard Biswas Spotting Feb-1 Catherine Referring In Womens complicating 9-201 Brianne. Provider: Health ABIGAIL, , second 7 700 Brianne PO Box trimesterEncounte Medical Catherine L, 1522, r for suprvsn of [place] [address] [place], normal , [facility] Is[place]ell NÚÑEZ, second 120, Center [id number], [email or web address] weeks [facility] 120, [place] gestation of True NÚÑEZ, tel:[phone] [place], , [place]. [id number]. tel: tel:[phone] Richard Bis[place] Spotting Feb-1 Aman Referring In Womens complicating 8-201 Kuldeep. 700 Provider: Kevin HAYES, , second 7 Medical Biranne PO Box trimesterEncounte [place] Catherine L, 1522, r for suprvsn of Dr [place] [address] [place], normal , 120, Medical [place], second [place], [place] [id number], [email or web address] weeks [facility] 120, [place] gestation of [id number] [place], tel: , [place]. [place] tel:[phone] tel:[phone] Richard Biswas Suprvsn of Feb-1 Catherine Referring In Womens w grand 0-201 Brianne. Provider: Kevin HAYES, multiparity, 7 700 Brianne PO Box second Medical Catherine L, 1522, trimesterEncounte Center [address] [place], [place] [address]ta, r for suprvsn of Dr [facility] Isabell NÚÑEZ, normal , 120, Center [id number], second [facility] 120, [place] [email or web address] weeks True NÚÑEZ, tel:+[phone] gestation of [phone] [place], , [place]. [id number]. tel: tel:[phone] Richard Biswas Encounter for Raji-0 Catherine Referring In Womens suprvsn of normal 5-201 Brianne. Provider: Kevin HAYES, , second 7 700 Brianne PO Box trimester Medical Catherine L, 1522, Center [facility] Dr Ja [facility] Isabell NÚÑEZ, 120, Center [id number], [facility] 120, [place] True NÚÑEZ, tel:+ [phone] [place], , [place]. [id number]. tel: tel:[phone] Associates True Suprvsn of Catherine Referring In Womens w grand 2-201 Brianne. Provider: Kevin HAYES, multiparity, 7 700 Brianne PO Box first Medical Catherine L, 1522, trimesterEncounte Center [address] [place] [address], r for suprvsn of , [facility] Isabell NÚÑEZ, normal , 120, Center [id number], first [email or web address] [facility] 120, [place] weeks gestation True NÚÑEZ, tel:+ of [phone] [place], , [place]. [id number]. tel: tel:[phone] Richard Biswas Suprvsn of Catherine Referring In Womens w grand 3-201 Brianne. Provider: Kevin HAYES, multiparity, 7 700 Brianne PO Box first Medical Catherine L, 1522, trimesterEncntr Center [address] [place] [address], screen for Dr [facility] [place], infections w sexl 120, Center [id number], mode of [facility] 120, US transmissEncounte True NÚÑEZ, tel:[phone] r for screening [phone] [place], for oth , [place]. [id number]. infec/parastc tel: tel:+[phone] diseasesEncounter [phone] for suprvsn of normal , first trimesterEncounte r for screening of [email or web address] weeks gestation of Associates True Irregular Menses Apr-2 Levin Referring In Womens 5-201 Perla. Provider: Kevin HAYES, 7 700 Brianne PO Box Medical Catherine L, 1522, Center [facility] [place], Harpal Jalloh, 120, Center [id number], [facility] 120, [place] True NÚÑEZ, tel:[phone] [place], , [place]. [id number]. 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 Provider: Health ABIGAIL, (routine) w/o abn 6 700 Brianne PO Box findingsPap Smear Medical [facility], 1522, Screening, Cervix Center [address] Dr Ja, [facility] [place], 120, Center [id number], True, [facility] 120, True NÚÑEZ, tel: [phone] [place] , [place]. [id number]. 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 Provider: Kevin HAYES, (routine) w/o abn 5 700 Brianne PO Box findings Medical [facility] L, 1522, Center 700 Dr Ja, [facility], 120, Center [id number], [facility] 120, True NÚÑEZ, tel: [phone] [place], , [place]. [id number]. tel: tel: [phone] Richard Biswas December- Ollie Referring In Womens Perla. Provider: Kevin HAYES, 5 700 Brianne PO Box [facility], 1522, Center 700 Dr Ja, [facility], 120, Center [id number], True, [facility] 120, [place] True NÚÑEZ, tel: [phone] [place], , [place]. [id number]. tel: tel:[phone] Biswas Jun-2 Vincent Referring In Womens 8- Varsha. Provider: Kevin HAYES, 1 700 Eleni PO Box [facility] 1522, Center B, [place]. Dr Ja, [facility] [place], 120, [id number], True, [place], tel:[phone] , [place]. tel: [phone] Family History Family Member Diagnosis Age At Onset Brother Renal disease Sister Hypertension Father Hypertension Paternal grandfather Diabetes mellitus Maternal Grandmother Unknown Cancer Brother Stroke Brother Hypertension Mother Hypertension Immunizations Vaccine Date Status Comments Unknown Payers Payer name Insurance type Covered alliance party ID Authorization(s) [place] [id number] Social History Type Description Quantity Date Captured Alcohol Use Details No Caffeine Use Details soda occasional per day Tobacco Use Status Never smoked tobacco Smoking Status Never smoker Vital Signs Date [...] Complete OB Ultrasound > 14 Ordered Weeks (53290) Future Order: Lab Order Pap Smear With [...]
--- OUTSIDE RECORDS SUMMARY | 2017-08-03 06:15 | External Medical Summary | Continuity of Care Document ---
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 (general) - (routine) w/o abn findings Encntr for special investigation unit investigator exam (general) - (routine) w/o abn findings [...] Urinary Frequency - Active Procedures Procedure Date Immuniz admnin, 1 vac, sngl/combo 19 Yrs + TDAP VACCINE >7 IM OB Visit No Charge Results Test Name Date and Time Measure Units Reference Range Abnormal Flag Comments Unknown Advance Directives Directive Yes / No Effective Date File Name Unknown Encounters Encounter Practice Location Reason(s) Diagnoses Date Provider Care Team Description For Visit Members Associates True Suprjamesn of Nov-0 Catherine Referring In Womens w grand 8-201 Brianne. Provider: Kevin HAYES, multiparity, 7 700 Rbianne PO Box third [email or web address] Medical Catherine L, 1522, weeks gestation Center [address] [place] [address], of Harpal Jalloh [place], 120, Center [id number], True [facility] 120, [place] True NÚÑEZ, tel:+ [phone] [facility] , [place]. [id number]. tel: tel:[phone] Associates True Banerjeen of Catherine Referring In Womens w grand 5-201 Brianne. Provider: Kevin HAYES multiparity, 7 700 Brianne PO Box third Medical Catherine L, 1522, [facility] [address], for suprvsn of Harpal Jalloh, normal , 120, Center [id number], third [email or web address] True [facility] 120, [place] weeks gestation True NÚÑEZ, tel: of [phone] [facility] , [place]. [id number]. tel: tel:[phone] Associates True Kiran of Catherine Referring In Womens w grand 1-201 Brianne. Provider: Kevin HAYES multiparity, 7 700 Brianne PO Box third [email or web address] Medical Catherine L, 1522, weeks gestation Center [address] [place] [address], of Harpal J[place]oh [place], 120, Center [id number], True [facility] 120, [place] True NÚÑEZ, tel: [phone] [facility] , [place]. [id number]. tel: tel:[phone] Associates True Suprjamesn of Sep-2 Catherine Referring In Womens w grand 0-201 Brianne. Provider: Kevin HAYES multiparity, 7 700 Brianne PO Box second Medical Catherine L, 1522, [facility]bell[facility] Center [address] [place] [address], for suprvsn of Harpal Jalloh, normal , 120, Center [id number], second True Harpal 120, [place] [email or web address] weeks True NÚÑEZ tel:+ gestation of [phone] [place], , [place]. [id number]. tel: tel:[phone] Associates True Suprjamesn of Mar- Catherine Referring In Womens w grand 1-201 Brianne. Provider: Kevin HAYES, multiparity, 7 700 Brianne PO Box second Medical Catherine L, 1522, trimesterEncounte Center [address] [place], r for suprvsn of Harpal Jalloh, normal , 120, Center [id number], second True Harpal 120, [place] [email or web address] weeks True NÚÑEZ, tel:+ gestation of [phone] [place], , [place]. [id number]. tel: tel:[phone] Richard Biswas HypokalemiaEncoun Feb- Catherine Referring In Womens ter for suprvsn 4-201 Brianne. Provider: Kevin HAYES, of normal 7 700 Brianne PO Box , second Medical Catherine L, 1522, [email or web address] weeks Center 700 [place], gestation of Harpal Jalloh, 120, Center [id number], True [facility] 120, [place] True NÚÑEZ, tel:[phone] [place], , [place]. [id number]. tel: tel:+[phone] Richard Biswas Suprjamesn of Catherine Referring In Womens Ultrasound w grand 4-201 Brianne. Provider: Kevin HAYES, multiparity, 7 700 Brianne PO Box second Medical Catherine L, 1522, trimesterEncounte Center 700 [place], r for suprvsn of Harpal Jalloh, normal , 120, Center [id number], second True Harpal 120, [place] [email or web address] weeks True NÚÑEZ, tel:+[phone] gestation of [id number] [place], , [place]. [id number]. tel: tel:[phone] Associates True Spotting Feb- Catherine Referring In Womens complicating 9-201 Brianne. Provider: Kevin HAYES, , second 7 700 Brianne PO Box trimesterEncounte Medical Catherine L, 1522, r for suprvsn of Center [facility] [place], normal , Dr, [facility] Isabell NÚÑEZ, second 120, Center [id number], [email or web address] weeks [facility] 120, [place] gestation of True NÚÑEZ, tel:+[phone] [place], , [place]. [id number]. tel: tel:+[phone] Richard Biswas Spotting Feb-1 Aman Referring In Womens complicating 8-201 Kuldeep. 700 Provider: Health PA, , second 7 Medical Brianne PO Box trimesterEncbellwood [facility] hospitale Center [facility] L, 1522, r for suprvsn of , [facility] Elis Peres, normal , 120, Medical [place], second [place], Center [id number], [email or web address] weeks [facility] 120, [place] gestation of [id number] [place], tel: , [place]. [place] tel:[phone] tel:[phone] Richard Biswas Suprvsn of Catherine Referring In Womens w grand 0-201 Brianne. Provider: Health PA, multiparity, 7 700 Brianne PO Box second Medical [facility] L, 1522, [facility]Encbellwood [facility] hospit[facility] Center [facility], r for suprvsn of [facility] Isabell NÚÑEZ, normal , 120, Center [id number], second [facility] 120, [place] [email or web address] weeks True NÚÑEZ, tel:+ gestation of [phone] [place], , [place]. [id number]. tel: tel:[phone] Richard Biswas Encounter for Feb-0 Catherine Referring In Womens suprvsn of normal 5-201 Brianne. Provider: Health PA, , second 7 700 Brianne PO Box trimester Medical Catherine L, 1522, Center Elis Peres, Dr [facility] [place], 120, Center [id number], [facility] 120, [place] True NÚÑEZ, tel:[phone] [place], , [place]. [id number]. tel: tel:+ [phone] Richard Biswas Suprvsn of Catherine Referring In Womens w grand 2-201 Brianne. Provider: Kevin HAYES, multiparity, 7 700 Brianne PO Box first Medical Catherine L, 1522, trimesterEncounte Center 700 [place], r for suprvsn of DrHarpal, normal , 120, Center [id number], first [email or web address] [facility] 120, [place] weeks gestation True NÚÑEZ, tel:+ of [phone] [place], , [place]. [id number]. tel: tel:[phone] Richard Biswas Suprvsn of Catherine Referring In Womens w grand 3-201 Brianne. Provider: Kevin HAYES, multiparity, 7 700 Brianne PO Box first Medical Catherine L, 1522, trimesterEncntr Center [address] [place] [address], screen for Dr [facility] Isabell NÚÑEZ, infections w sexl 120, Center [id number], mode of [facility] 120, US transmissEncounte True NÚÑEZ, tel: r for screening [phone] [place], for oth , [place]. [id number]. infec/parastc tel: tel: diseasesEncounter [phone] for suprvsn of normal , first trimesterEncounte r for screening of [email or web address] weeks gestation of Associates True Irregular Menses Nov- Ollie Referring In Womens -201 Perla. Provider: Kevin HAYES, 7 700 Brianne PO Box Medical Catherine L, 1522, Center [facility] [place] [facility], Harpal Jalloh, 120, Center [id number], [facility] 120, [place] True NÚÑEZ, tel: [phone] [place], , [place]. [id number]. 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 Provider: Kevin HAYES, (routine) w/o abn 6 700 Brianne PO Box findingsPap Smear Medical Catherine L, 1522, Screening, Cervix Center [address] Dr Ja, [facility] [place], 120, Center [id number], [facility] 120, True NÚÑEZ, tel:+ [phone] [place], , . [id number]. tel: tel:+ [phone] Richard Biswas Encntr for special investigation unit investigator Nov- Ollie Referring In Womens exam (general) 8-201 Perla. Provider: Kevin HAYES, (routine) w/o abn 5 700 Brianne [facility] L, 1522, Center [address] Dr Ja, [facility], 120, Center [id number], [facility] 120, True NÚÑEZ, tel:+ [phone] [place], , . [id number]. tel: tel: [phone] Richard Biswas Ollie Referring In Womens 8-201 Perla. Provider: Kevin HAYES, 5 700 [facility] , 1522, Center [address] Dr Ja, [facility], 120, [place] [id number], [facility] 120, True NÚÑEZ, tel:[phone] [place], , . [id number]. tel: tel:+[phone] Richard Biswas Jun-2 Vincent Referring In Womens 8-201 Varsha. Provider: Kevin HAYES, 1 700 [facility], Center B, [place]. Dr Ja, [facility] [place], 120, [id number], True, [place], tel:[phone] , [place]. tel: [phone] Family History Family Member Diagnosis Age At Onset Brother Renal disease Sister Hypertension Father Hypertension Paternal grandfather Diabetes mellitus Maternal Grandmother Unknown Cancer Brother Stroke Brother Hypertension Mother Hypertension Immunizations Vaccine Date Status Comments Tdap completed Source: New Immunization Record Payers Payer name Insurance type Covered constitution party ID Authorization(s) [facility] [id number] [facility] [id number] Social History Type Description Quantity Date Captured [...] Complete OB Ultrasound > 14 Ordered Weeks (74428) Future Order: Lab Order Pap Smear With [...]
--- OUTSIDE RECORDS SUMMARY | 2017-08-03 06:16 | External Medical Summary | Continuity of Care Document ---
:1985 Author Organization [facility] Allergies Medications Medication Packaging Start Date Stop Date Route Dosage Sig Package 07/15/2015 SPRINTEC 6 take 1 tablet by oral route every day Package 01/26/2016 SPRINTEC 7 take 1 tablet by oral route every day Packet 07/04/2017 AZITHROMYCIN 7 take 2 tablet by oral route every day for 1 day then 1 tablet (250 mg) by oral route once daily for 4 days Problems Date Dx Attending Type Code Diagnosis Diagnosed By Coded 10/09/2012 Sushil RODRIGUEZ, F 276.8 HYPOPOTASSEMIA Yanick W 10/09/2012 Sushil RODRIGUEZ, F 287.5 THROMBOCYTOPENIA NOS Yanick W 10/09/2012 Sushil RODRIGUEZ, F 642.41 MILD/NOS Yanick W PREECLAMP-DELIV 10/09/2012 Sushil RODRIGUEZ, F 648.91 OTH CURR Yanick W COND-DELIVERED 10/09/2012 Sushil RODRIGUEZ, F 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 10/09/2012 Sushil RODRIGUEZ, F 651.01 TWIN Yanick W -DELIVERED 10/09/2012 Sushil RODRIGUEZ, A 651.03 TWIN Yanick W -ANTEPART 10/09/2012 Sushil RODRIGUEZ, F 669.51 FORCEP OR VACUUM EXTR Yanick W DELIVERY 10/09/2012 Sushil RODRIGUEZ, F V27.2 DELIVER-TWINS, BOTH Yanick W LIVE 10/09/2012 Sushil RODRIGUEZ, F V91.02 TWIN GEST, Yanick W MONOCHORIONIC/DIAMNIOT IC-1 PLACENTA,2 A 03/14/2017 Kuldeep Newton O26.852 Spotting complicating , second trimester 03/14/2017 Kuldeep Newton Z34.82 Encounter for suprvsn of normal , second trimester 03/14/2017 Kuldeep Newton Z3A.18 18 weeks gestation of 03/19/2017 Brianne Alexander09.42 Suprvsn of w L grand multiparity, second trimester 03/19/2017 Catherine Brianne Shyam Z34.82 Encounter for suprvsn L of normal , second trimester 03/19/2017 Catherine Brianne Howe Z3A.19 19 weeks gestation of L Procedures Code Description Performed By Performed On Sushil RODRIGUEZ, Yanick 10/09/2012 72.79 VACUUM EXTRACT DEL NEC W Sushil RODRIGUEZ, Yanick 10/09/2012 73.01 INDUCT LABOR-RUPT MEMB W Sushil RODRIGUEZ, Yanick 10/09/2012 73.4 MEDICAL INDUCTION LABOR W OB 2017 40841 Visit No Charge 03/19/2017 17176 Ultrasnd exam of preg uterus, compl Encounters ACCT No. Visit Discharge Status Pt. Type Provider Facility Loc./Unit Complaint Date/Time [id number] 10/09/2012 11/08/2012 DIS Inpatient Nicolemyrtle Victorino Marina5WH [id number] 15:30:00 17:30:00 , [facility] [id number] 07/18/2017 07/18/2017 CLS Outpatient Catherine, 09:45:00 23:59:59 Brianne L [id number] 07/10/2017 07/10/2017 CLS Outpatient Catherine, 09:40:00 23:59:59 Brianne L [id number] 07/04/2017 07/04/2017 CLS Outpatient Catherine, 09:45:00 23:59:59 Brianne L [id number] 06/20/2017 06/20/2017 CLS Outpatient Catherine, 08:45:00 23:59:59 Brianne L [id number] 06/06/2017 06/06/2017 CLS Outpatient Catherine, 09:15:00 23:59:59 Brianne L [id number] 05/16/2017 05/16/2017 CLS Outpatient Catherine, 09:30:00 23:59:59 Brianne L [id number] 05/01/2017 05/01/2017 CLS Outpatient Catherine, 09:31:00 23:59:59 Brianne L [id number] 04/16/2017 04/16/2017 CLS Outpatient Catherine, 08:30:00 23:59:59 Brianne L [id number] 03/19/2017 03/19/2017 CLS Outpatient Catherine, 11:25:00 23:59:59 Brianne L [id number] 03/19/2017 03/19/2017 CLS Outpatient Catherine, 11:15:00 23:59:59 Brianne L [id number] 03/14/2017 03/14/2017 CLS Outpatient Catherine, 10:45:00 23:59:59 Brianne L [id number] 03/14/2017 03/14/2017 CLS Outpatient Catherine, 08:40:00 23:59:59 Brianne L [id number] 2017 2017 CLS Outpatient Aman, 23:24:00 23:59:59 Kuldeep R [id number] 03/08/2017 03/08/2017 CLS Outpatient Catherine, 14:15:00 23:59:59 Brianne L [id number] 03/05/2017 03/05/2017 CLS Outpatient Catherine, 15:15:00 23:59:59 Brianne L [id number] 02/28/2017 02/28/2017 CLS Outpatient Catherine, 14:00:00 23:59:59 Brianne L [id number] 02/05/2017 02/05/2017 CLS Outpatient Catherine, 15:30:00 23:59:59 Brianne L [id number] 01/16/2017 01/16/2017 CLS Outpatient Catherine, 10:00:00 23:59:59 Brianne L [id number] 12/19/2016 12/19/2016 CLS Outpatient Levin, 13:45:00 23:59:59 Perla Parker [id number] 12/01/2016 12/01/2016 CLS Outpatient Catherine, 08:48:00 23:59:59 Brianne L [id number] 07/24/2016 07/24/2016 CLS Outpatient Levin, 08:32:00 23:59:59 Perla Parker [id number] 01/26/2016 01/26/2016 CLS Outpatient Levin, 15:15:00 23:59:59 Perla Parker [id number] 07/15/2015 07/15/2015 CLS Outpatient Catherine, 09:15:00 23:59:59 Brianne L [id number] 07/14/2015 07/14/2015 CLS Outpatient Levin, 14:00:00 23:59:59 Perla Parker [id number] 05/20/2015 05/20/2015 CLS Outpatient Catherine, 13:47:00 23:59:59 Brianne Charles [id number] 08/01/2017 ACT Outpatient Catherine, 08:50:00 Brianne Charles
--- OUTSIDE RECORDS SUMMARY | 2017-08-03 06:16 | External Medical Summary | Continuity of Care Document ---
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 (general) - (routine) w/o abn findings Encntr for chiropractor assistant exam (general) - (routine) w/o abn findings Suprvsn of w grand - multiparity, second trimester Encounter for suprvsn of normal - , second trimester 27 weeks gestation of - Hypokalemia - 19 [...] third trimester 30 weeks gestation of - Spotting complicating , - second trimester Encounter for suprvsn of normal - , second trimester 18 weeks gestation of - Spotting complicating , - second trimester 18 weeks gestation of - Encounter for suprvsn of normal - , second trimester Pap Smear Screening, Cervix - Encounter for suprvsn of normal - , second trimester Inappropriate Change In Quantitative - Active HCG In Early Urinary Frequency - Active Procedures Procedure Date OB Visit No Charge Glucose test Hemoglobin count, colorimetric Hematocrit blood count Venpnctr fngr/heel/ear stick routne Results Test Name Date and Time Measure Units Reference Range Abnormal Flag Comments Panel Description: Glucose [Mass/volume] in Serum or Plasma --1 hour post 50 g glucose PO GLUCOSE, GESTATIONAL 91 mg/dL <140 N Test performed at Only-apartments (50G)-140 10:43:00 DIAGNOSTICS [id number] [place] [id number]: SHEYLA OQUENDO DO,MPH Panel Description: HEMOGLOBIN + HEMATOCRIT HEMOGLOBIN 10:43:00 11.3 g/dL 11.7-15.5 L HEMATOCRIT 10:43:00 33.5 % 35.0-45.0 L REPORT COMMENT:FASTING :NOTest performed at [facility] [id number] [place] [id number]: SHEYLA OQUENDO DO,MPH Advance Directives Directive Yes / No Effective Date File Name Unknown Encounters Encounter Practice Location Reason(s) Diagnoses Date Provider Care Team Description For Visit Members Associates True Kiran of [place] Referring In Womens w grand 1-201 Brianne. Provider: Kevin HAYES multiparity, 7 [address] third Medical [place] L, 1522, weeks gestation Center [address] [place], of Harpal Jalloh, 120, Center [id number], [facility] [place] True [place], tel:[phone] [facility] , [place]. [id number]. tel: tel:[phone] Richard Kiran of [place] Referring In Womens w grand 0-201 Brianne. Provider: Kevin HAYES multiparity, 7 700 [address] second Medical [place] L, 1522, [facility] [address] [place], for suprvsn of Harpal Jalloh, normal , 120, Center [id number], [facility] True [facility] 120, [place] [id number] weeks True NÚÑEZ, tel: gestation of [phone] [facility] , [place]. [id number]. tel: tel:[phone] Richard Banerjeen of [place] Referring In Womens w grand 1-201 Brianne. Provider: Kevin HAYES multiparity, 7 700 [address] PO Box second Medical [place] L, 1522, [facility] [address] [place], for suprvsn of Harpal Jalloh, normal , 120, Center [id number], [facility] True [facility] 120, [place] [id number] weeks True NÚÑEZ, tel:[phone] gestation of [id number] [place], , [place]. [id number]. tel: tel:[phone] Associates True [id number] [place] Referring In Womens weeks gestation 4-201 Brianne. Provider: Kevin HAYES, of 7 700 [address] Box pregnancyEncounte Medical [place] L, 1522, r for suprjamesn of [address], normal , Harpal Jalloh, second trimester 120, Center [id number], True [facility] 120, [place] True NÚ[place], tel:[phone] [place], , [place]. [id number]. tel: tel:[phone] Associates True Kiran of [place] Referring In Womens Ultrasound w grand 4-201 Brianne. Provider: Kevin HAYES, multiparity, 7 700 [place] PO Box second [facility] L, 1522, [facility] [address], r for suprvsn of Harpal Jalloh, normal , 120, Center [id number], second True [facility] 120, [place] [id number] weeks True NÚÑEZ, tel: gestation of [id number] [place], , [place]. [id number]. tel: tel:[phone] Richard [place] Spotting [place] Referring In Womens complicating 9-201 Brianne. Provider: Kevin HAYES, , second 7 700 [address] PO Box trimesterEncounte Medical [place] L, 1522, r for supryuniel of [address], normal , Harpal Jalloh, second 120, Center [id number], [id number] weeks True, [facility] 120, [place] gestation of True NÚÑEZ, tel: [phone] [place], , [place]. [id number]. tel: tel:[phone] Richard [place] Spotting Aman Referring In Womens complicating 8-201 Kuldeep. 700 Provider: Kevin HAYES, , second 7 Medical Brianne PO Box [id number] weeks [place] L, 1522, gestation of Harpal Jalloh, pregnancyEncounte 120, Medical [place], r for suprvsn of True, Center [id number], normal , [facility] 120, [place] second trimester [id number] True, tel: , [place]. [place], tel:[phone] [id number] tel:[phone] Richard [place] Suprvsn of Catherine Referring In Womens w grand 0-201 Brianne. Provider: Health PA, multiparity, 7 700 [place] PO Box second Medical [place] L, 1522, trimesterEncounte Center [address] [place], r for suprvsn of Harpal Jalloh, normal , 120, Center [id number], second [facility] 120, [place] weeks True NÚÑEZ, tel:+ gestation of [phone] [place], , [place]. [id number]. tel: tel: [phone] Richard [place] Encounter for Catherine Referring In Womens suprvsn of normal 5-201 Brianne. Provider: Health PA, , second 7 700 Brianne PO Box trimester Medical [place] L, 1522, Center Elis Peres, Harpal Jalloh [facility], 120, Center [id number], [facility] 120, [place] True NÚÑEZ, tel:[phone] [place], , [place]. [id number]. tel: tel: [phone] Richard [place] Suprvsn of Catherine Referring In Womens w grand 2-201 Brianne. Provider: Health PA, multiparity, 7 700 [place] PO Box first Medical [place] L, 1522, trimesterEncounte Center 700 bubba Peres for suprvsn of Harpal Jalloh, normal , 120, Center [id number], first [facility] 120, [place] weeks gestation True NÚÑEZ, tel:[phone] [facility] , [place]. [id number]. tel: tel:[phone] Richard [place] Suprvsn of Catherine Referring In Womens w grand 3-201 Brianne. Provider: Kevin HAYES, multiparity, 7 700 [place] PO Box first Medical [place] L, 1522, trimesterEncntr Center [address] [place], screen for Dr, [facility] [place], infections w sexl 120, Center [id number], mode of [place], [facility] 120, [place] transmissEncounte True NÚÑEZ, tel:[phone] r for screening [phone] [place], for oth , [place]. [id number]. infec/parastc tel: tel:[phone] diseasesEncounter [phone] for suprvsn of normal , first trimesterEncounte r for screening of weeks gestation of Associates True Irregular Menses Ollie Referring In Womens [facility]. Provider: Kevin HAYES, 7 700 [address] PO Box Medical [place] L, 1522, Center [facility] Dr Ja, [facility], 120, Center [id number], [place], [facility] 120, [place] True NÚÑEZ, tel:[phone] [place], , [place]. [id number]. tel: tel:[phone] Richard [place] Encntr for chiropractor assistant Alvaro-0 Ollie Referring In Womens exam (general) [facility]. Provider: Kevin HAYES, (routine) w/o abn 6 700 [place] PO Box findingsPap Smear Medical [place] L, 1522, Screening, Cervix Center [facility] Dr Ja, [facility], 120, Center [id number], [place], [facility] 120, [place] True NÚÑEZ, tel:[phone] [place], , [place]. [id number]. tel: tel:[phone] Richard [place] Encntr for chiropractor assistant Jun- Ollie Referring In Womens exam (general) [facility]. Provider: Kevin HAYES, (routine) w/o abn 5 700 [place] PO Box findings Medical [place] L, 1522, Center [facility] Dr Ja, [facility] [place], 120, Center [id number], True, [facility] 120, [place] True NÚÑEZ tel: [phone] [place], , [place]. [id number]. tel: tel: [phone] Associates True Ollie Referring In Women Perla. Provider: Health ABIGAIL, 5 700 [address]ne Box [facility] L, 1522, Center [address] Dr [address], [facility], 120, [place] [id number], [facility] 120, [facility], True, tel: [phone] [place], , [place]. [id number]. tel: tel: [phone] Associates True Vincent Referring In Women Varsha. Provider: Health ABIGAIL, 1 700 [facility], Center B, [place]. Dr Ja, [facility] [place], 120, [id number], [place], [facility], tel: [phone] , [place]. tel: [phone] Family History Family Member Diagnosis Age At Onset Brother Renal disease Sister Hypertension Father Hypertension Paternal grandfather Diabetes mellitus Maternal Grandmother Unknown Cancer Brother Stroke Brother Hypertension Mother Hypertension Immunizations Vaccine Date Status Comments Unknown Payers Payer name Insurance type Covered constitution party ID Authorization(s) [facility] [place] BL [id number] Social History Type Description Quantity Date Captured Alcohol Use Details No Caffeine Use Details Unknown Tobacco Use Status Unknown Smoking Status Never smoker Vital Signs Date / Height Weight BMI Pulse Blood Temperature Respiratory Body Head BMI Time: Rate Pressure Rate Surface Circumference percentile Area 164.90 30.6 106/65 lbs 5 mm[Hg] 9:49 kg/m AM eter (2) Chief Complaint And Reason For Visit Unknown Chief Complaint And Reason For Visit Reason For Referral Reason For Referral Unknown Plan Of Care Date Type Action Status Goal Lifestyle education regarding completed diet Appointment Florencia Anne BOOKED Appointment Florencia Anne BOOKED Appointment Florencia Anne BOOKED Future Order: Radiology Order Complete OB Ultrasound > 14 Ordered Weeks ([id number]) Future Order: Lab Order Pap Smear With [...]
[2017-08-03 06:31] VITALS: BMI 33.3
[2017-08-03] MEDS: LR 1,000 ML IV PRN ×3 (06:39→12:06)
--- NOTE | 2017-08-03 09:15 | Anesthesia Preoperative Report ---
Anesthesia Epidural/Spinal Rec - Date and Time Date: 08/03/17 Preoperative Diagnosis: Procedure: Labor Epidural Plan: Epidural - Vital Signs Vital Signs: Temperature 98.4 F 08/03/17 06:20 Pulse Rate 81 08/03/17 06:20 Respiratory Rate 14 08/03/17 06:20 Blood Pressure 131/76 08/03/17 06:20 Pulse Oximetry 99 08/03/17 06:20 /Para: P:5 - Medictaions & Allergies Inpatient Medications: Current Medications Acetaminophen (Tylenol) 500 - 1,000 mg PO Q4H PRN PRN Reason: Pain Al Hydroxide/Mg Hydroxide (Maalox Plus) 30 ml PO Q3H PRN PRN Reason: Indigestion Calcium Carbonate (Tums) 500 - 1,000 mg PO Q2H PRN PRN Reason: Indigestion Carboprost Tromethamine (Hemabate) 250 mcg IM O PRN PRN Reason: .Downtime Dextrose/Lactated Ringer's (Dextrose 5%-Lactated Ringers) 1,000 mls @ 125 mls/ hr IV .Q8H PRN PRN Reason: Labor Last Admin: 08/03/17 06:41 Dose: 125 mls/hr Lactated Ringer's (Lactated Ringers) 1,000 mls @ 999 mls/hr IV .Q1H1M PRN Last Admin: 08/03/17 09:09 Dose: 999 mls/hr Oxytocin (Pitocin Drip) 30 unit in 500 mls @ 2 mls/hr IV .Q24H PRN; Protocol PRN Reason: Induction/Augmentation Last Admin: 08/03/17 06:43 Dose: 2 mls/hr Lidocaine HCl (Xylocaine-Mpf 1% Vial) 0.2 mg ID O PRN PRN Reason: IV Start Methylergonovine Maleate (Methergine) 0.2 mg IM O PRN Misoprostol (Cytotec) 800 mcg NH ONCE PRN Allergies/Adverse Reactions: Allergies Allergy/AdvReac Type Severity Reaction Status Date / Time No Known Allergies Allergy Verified 03/14/17 00:39 - Home Medications Home Medications: Home Medications Medication Instructions Recorded Confirmed Type Vitamins 07/23/17 History raNITIdine HCl [Zantac 75] 75 mg PO 08/03/17 History - Medical History Gastrointestional: Reports: Gastroesophageal Reflux Disease Other History: Reports: Now - Surgical History Reproductive Surgery/Treatment: DENIES: Section Anesthesia Reactions: None Hx Family Anesthesia Reaction: No History of Motion Sickness: No - Social History Smoking Status: Never smoker Second Hand Exposure: No Substance Use Type: does not use Alcohol Intake Frequency: does not drink Hx Chewing Tobacco Use: No - Pertinent Findings Lab Data: CBC and BMP 08/03/17 06:29 EKG Rhythm: Normal Sinus Rhythm - Physical Exam Respiratory Exam: lungs clear Cardiovascular Exam: regular rate and rhythm - Airway Assessment Mallampati Score: II TMD: 3 Fingerbreadths Neck Extension: good Overall Assessment: may be difficult intubation - ASA ASA Score: 2 - Discussion Discussion: Discussed risks/options/alternatives of anesthesia and questions answered. Patient consents. Nursing pain assessment noted. Anesthesia Discussion: spouse Attestation Statement: Prior to the delivery of any anesthetic medication, I examined the patient, developed the plan, obtained the patient's consent and discussed the risk and benefits of the procedure with the patient/guardian.
[2017-08-03] MEDS ORDERED: NALOXONE 0.4 MG/ML INJECTION IVP PRN (09:17)
[2017-08-03] MEDS ORDERED: ONDANSETRON 4 MG/2 ML INJECTION IVP PRN (09:17)
[2017-08-03] MEDS ORDERED: DiphenhydrAMINE 50 MG/ML INJECTION IVP PRN (09:17)
[2017-08-03] MEDS ORDERED: ROPIVACAINE 1% 10MG/ML INJ 200 MG, SUFentanil 50 MCG in NS 100 ML EPI PRN (09:17)
[2017-08-03] MEDS ORDERED: HYDROCORTISONE 2.5% CREAM 30gm RECTALLY PRN (14:52)
[2017-08-03] MEDS ORDERED: OXYTOCIN DRIP 30 UNIT/500 ML ML IV SCH (14:52)
[2017-08-03] MEDS ORDERED: DiphenhydrAMINE 25 MG CAPSULE PO PRN (14:52)
--- NOTE | 2017-08-03 15:44 | Labor and Delivery Note ---
DATE OF DELIVERY 08/03/2017 NARRATIVE Ms. Anne progressed well in first stage of labor. She began to push with excellent effort at the complete and +1 station. She pushed for approximately one-half hour, delivering the head in the OA presentation. There was a snug nuchal cord x 1 that I was not able to reduce. I therefore doubly clamped and cut it. With two further pushes baby was delivered in total. Baby was then placed on mother's abdomen and bulb suctioned. This is a liveborn male with Apgars of 8/9/9/. He weighed 7 pounds, 6.7 ounces. After a couple of minutes the placenta delivered spontaneously intact. It had a normal configuration and normal-appearing three-vessel cord. Perineum was intact. There was very minimal bleeding with an EBL of approximately 200 mL. At the time of this dictation mother and baby are doing well. [facility]
--- NOTE | 2017-08-03 16:43 | Anesthesia Postoperative Note ---
- Date and Time Date: 08/03/17 Time: 16:35 - Status Patient Participated in Evaluation: Patient Participated in Person Vital Signs: Temperature 98.4 F 08/03/17 06:20 Pulse Rate 81 08/03/17 06:20 Respiratory Rate 14 08/03/17 06:20 Blood Pressure 131/76 08/03/17 06:20 Pulse Oximetry 99 08/03/17 06:20 Respiratory Function: Airway Patent, Regular Respirations Cardiovascular Function: Regular Pulse Mental Status: Alert and Oriented Pain Intensity: 0 Hydration: Taking PO Fluids Complications During Recover: None Apparent Post Anesthesia Care Notes: Ambulating without problems - Follow-Up Instructions Instructions: Per Surgeon
[2017-08-03] MEDS: IBUPROFEN 800 MG TABLET PO SCH ×2 (16:54→22:05)
[2017-08-04] MEDS: MORPHINE SULFATE 2mg INJECTION IVP PRN ×2 (05:00→08:27)
--- NOTE | 2017-08-04 07:42 | Progress Note ---
OB PP Progress Note Free Text - Date Date: 08/04/17 - Progress Note Progress Note: doing well pptl planned for this am will start maint ivf q&a-krb
[2017-08-04] MEDS ORDERED: LR 1,000 ML IV SCH (07:45)
[2017-08-04] MEDS ORDERED: BUPIVACAINE 0.25% (2.5mg/ml) PF 30ml INJECTION ONE (08:04)
[2017-08-04] MEDS ORDERED: FentaNYL 100 MCG/2 ML INJECTION ONE (08:34)
[2017-08-04] MEDS ORDERED: MIDAZOLAM 2mg/2ml INJECTION ONE (08:34)
[2017-08-04] MEDS ORDERED: DOCUSATE CALCIUM 240 MG CAPSULE PO SCH (09:00)
[2017-08-04] MEDS ORDERED: PROPOFOL 500 MG/50 ML VIAL IV ONE (09:21)
[2017-08-04] MEDS ORDERED: BUPIVACAINE 0.25% (2.5mg/ml) PF 30ml INJECTION SQ ONE (09:43)
[2017-08-04] MEDS: HYDROCODONE/APAP 5mg/325mg TABLET PO PRN ×2 (10:50→16:00)
[2017-08-04] MEDS: IBUPROFEN 800 MG TABLET PO SCH (10:50)
--- NOTE | 2017-08-04 11:05 | Anesthesia Postoperative Note ---
- Date and Time Date: 08/04/17 Time: 11:05 - Status Patient Participated in Evaluation: Patient Participated in Person Vital Signs: Temperature 98 F 08/04/17 10:40 Pulse Rate 60 08/04/17 10:40 Respiratory Rate 14 08/04/17 10:40 Blood Pressure 106/61 08/04/17 10:40 Pulse Oximetry 95 08/04/17 10:40 Respiratory Function: Airway Patent, Regular Respirations Cardiovascular Function: Regular Pulse Mental Status: Alert and Oriented Pain Intensity: 0 Hydration: Taking PO Fluids Complications During Recover: None Apparent - Follow-Up Instructions Instructions: Per Surgeon
--- NOTE | 2017-08-04 12:13 | OB/GYN Procedure Note ---
Operative Note Date of Surgery: 08/04/17 Preoperative Diagnosis: desires perm sterilization Postoperative Diagnosis: same Procedure: Modified Bran PPTL Surgeon:Kuldeep Newton MD EBL: minimal Anesthesia: Spinal Complications: none
[2017-08-04 14:01] VITALS: O2SAT 99
[2017-08-04 16:39] VITALS: BP 113/62; PULSE 62; RESP 16; TEMP 98.1
--- NOTE | 2017-08-04 16:42 | Operative Note ---
DATE OF SURGERY: 08/04/2017 PREOPERATIVE DIAGNOSIS 32-year-old white female day #1 desiring permanent sterilization. POSTOPERATIVE DIAGNOSIS: Same. PROCEDURE: Modified Ely tubal ligation. EBL: Minimal. SURGEON: Kuldeep Newton MD ANESTHESIA: Spinal by Jung Contreras CRNA. COMPLICATIONS: None. DESCRIPTION OF OPERATION Prior to starting the procedure the patient again vocalized her desire for permanent sterilization. The risks, complications and alternatives to this procedure were again reviewed and questions were answered to the Patient's satisfaction. A chance of failure is present (estimated at 1%) coupled with an increased risk of ectopics if failure occurs. The patient is aware of this and still desires to proceed. After adequate spinal anesthesia, the patient was prepped and draped in the supine position. The bladder was emptied prior to beginning the procedure. Then 0.25% Marcaine was injected in the inferior aspect of the umbilical region for additional anesthesia. Then a semilunar subumbilical incision was made with a scalpel. This was carried down to the fascia. The fascia was identified and incised transversely with the Baig scissors. Peritoneum was then identified and grasped with a Gita clamp and entered with a Metzenbaum scissors. Army-[employer]ers retractors were used. The patient was then placed in slight Trendelenburg position and rolled to the left side. The right fallopian tube was then identified and grasped with a Lisa clamp and followed in a serial fashion to its fimbriated end to confirm tube identification. Then in a stairstep fashion it was followed back to the mid isthmic portion of the tube. The mid isthmic portion of the tube was elevated through the incision forming a knuckle of the tube and this knuckle was initially ligated using 2-0 chromic. Then a Gita clamp was passed through the meso of the tube and the proximal and distal aspects of the knuckle of the tube were ligated using 2-0 silk sutures. The knuckle of the tube was then transected and removed and sent to surgical pathology for lumen confirmation. Hemostasis was confirmed. Then 0.25% Marcaine was injected in the ligated end of the knuckle of the tube for additional anesthesia. The tube was then allowed to return to the abdominal wall after the fimbriated end was again visualized to confirm identification. Once the tube was replaced into the abdominal cavity the patient was rolled to the other side and the procedure was repeated in an identical fashion on the left side. Care was taken to identify the fallopian tube prior to and after performing the procedure by visualization of the fimbriated end. Once this was completed on both sides and hemostasis was confirmed on both sides, the abdomen was then closed in layers. This was done first by closing the peritoneum in a pursestring fashion using 2-0 Vicryl. Then using 2-0 Vicryl in a running nonlocking fashion, fascia was closed. The skin was closed in a subcuticular fashion using 4-0 undyed Vicryl. Additional Marcaine was injected around the incision site. The patient tolerated the procedure well and went to the recovery room in stable condition. Pad, sponge and needle counts were correct. MPD
== END 2017-08-04 17:49 | disposition home or self-care (01) | DRG 767 ==
LOC: MC 06:08
PROVIDERS: ADMIT Obstetrics & Gynecology; ATTEND Obstetrics & Gynecology